=== PATIENT | female | born 1965 | race Caucasian/White ===

== ENCOUNTER 2021-10-17 18:43 | Emergency (ER) | payer OTHER, SELFPAY ==
--- NOTE | ~2021-10-17 | XR_ITS ---
EXAMINATION: XR chest 2V, XR sternum min 2V Exam Date/Time: 10/17/2021 19:10 CDT CLINICAL HISTORY: COUGH,CRACKLES,STERNUM PAIN SO NOT DEEP BREATHING Comparison: None available. RESULT: Lines, tubes, and devices: None. Lungs and pleura: No pneumothorax or focal consolidation. Bilobed appearing right lower lobe mass me asuring up to 3 cm. Hyperinflation as can be seen with emphysema. Cardiomediastinal silhouette: Unremarkable cardiomediastinal silhouette. Other: Right posterior lateral sixth rib fracture. Minimally displaced midsternal fracture. IMPRESSION: Right posterior lateral sixth rib fracture. Minimally displaced mid sternal fracture. Right lower lob e pulmonary mass, may represent a hamartoma or AVN, however a nonemergent outpatient CT of the chest with contrast is recommended for more definitive characterization. Reviewed, dictated and finalized at [facility]. IMPRESSION: Right posterior lateral sixth rib fracture. Minimally displaced mid sternal fra cture. Right lower lobe pulmonary mass, may represent a hamartoma or AVN, howev er a nonemergent outpatient CT of the chest with contrast is recommended for mo re definitive characterization.
--- NOTE | 2021-10-17 18:46 | ED.FALL ---
HPI - Fall General Chief Complaint: Fall Stated Complaint: Fall Injury Time Seen by Provider: 10/17/21 18:46 Source: patient and RN notes reviewed History of Present Illness HPI Narrative: Patient is a 56-year-old female who presents the urgent care with complaints of chest wall pain. Patient states that she bent in a funky area of her chest and ever since then she has been having extreme pain. Patient states that hurts to deep breathe or with certain movements. Patient has not taken anything [id number] for her symptoms. Denies of any blunt force trauma to the chest. States that this incident occurred on Friday. Denies any chest pain, radiating to the back, jaw or arm. No other acute complaints. No acute distress noted. Patient aware of the plan of care. Some parts of this dictation were generated by voice recognition software and may contain typographical and/or grammatical inaccuracies. Related Data Home Medications Medication Instructions Recorded Confirmed albuterol sulfate 1 puff INHALATION DAILY 10/17/21 10/17/21 gabapentin 600 mg PO QID 10/17/21 10/17/21 Allergies Allergy/AdvReac Type Severity Reaction Status Date / Time No Known Allergies Allergy Verified 10/17/21 19:00 Review of Systems Review of Systems: CONSTITUTIONAL: Denies fever, chills, or sweats. EYES: Denies visual changes, redness, or discharge. ENT: Denies rhinorrhea, congestion, sore throat, or otalgia. CARDIOVASCULAR: Denies chest pain, palpitations, or edema. RESPIRATORY: Denies cough or dyspnea. GASTROINTESTINAL: Denies abdominal pain, nausea, vomiting, or diarrhea. GENITOURINARY: Denies dysuria or hematuria. SKIN: Denies rash or itching. MUSCULOSKELETAL: Denies back pain, joint pain, or myalgia. Reports of chest wall pain NEUROLOGIC: Denies headache, numbness, or weakness. All other systems reviewed are negative, except as documented in HPI. PMFSH Family History Family History (Updated 06/10/11 @ 20:29 by DOCTOR UNKNOWN) Other Diabetes mellitus Family history of liver disease Social History Social History Alcohol intake: never Comments At the time of my signature, I reviewed and agree with the nursing past medical, surgical, social, and family history. There is no relevant family history pertinent to the patient complaint. Exam Narrative: GENERAL: This is a well-nourished, well-developed patient, in no apparent distress. HEAD: normocephalic, atraumatic. EYES: PERRL. Sclera clear/white. Vision is grossly intact. EARS: External ears normal NOSE: External nose normal with no obvious nasal discharge, nares without redness, no rhinorrhea. THROAT: Mucous membranes moist NECK: Neck supple, non-tender without lymphadenopathy, masses or thyromegaly. CARDIOVASCULAR: Moderate chest wall, sternum tenderness. Regular rate and rhythm without murmurs, gallops, or rubs. RESPIRATORY: Crackles throughout without wheezes SKIN: warm, intact with no suspicious lesions or rash, good texture and turgor. NEURO: awake, alert, and oriented to person, place and time. There were no obvious focal neurologic abnormalities. EXTREMITIES: No clubbing, cyanosis, or edema. Course Course Level of Care: Express Care Visit Vital Signs Vital signs: Vital Signs Temperature 99 F 10/17/21 18:49 Pulse Rate 102 H 10/17/21 18:49 Respiratory Rate 20 10/17/21 18:49 Blood Pressure 144/89 H 10/17/21 18:49 Pulse Oximetry 95 10/17/21 18:49 Temperature 99 F 10/17/21 18:49 Pulse Rate 102 H 10/17/21 18:49 Respiratory Rate 20 10/17/21 18:49 Blood Pressure 144/89 H 10/17/21 18:49 Pulse Oximetry 95 10/17/21 18:49 Reviewed-patient is informed that they may have pre-hypertension or hypertension based on a blood pressure reading in the department. I recommend the patient call the primary care provider listed on their discharge instructions or a physician of their choice this week to arrange follow-up for further evaluation of
[2021-10-17 18:49] VITALS: BP 144/89; PULSE 102; RESP 20; TEMP 37.2; O2SAT 95
== END 2021-10-17 20:02 | disposition left against medical advice (07) ==
LOC: EXPBETH 18:48
PROVIDERS: Emergency Provider Nurse Practitioner Family; PCP Nurse Practitioner Family
DX: S22.20XA Unspecified fracture of sternum, initial encounter for closed fracture (principal); S22.31XA Fracture of one rib, right side, initial encounter for closed fracture; X58.XXXA Exposure to other specified factors, initial encounter; J43.9 Emphysema, unspecified
CPT/HCPCS: 71046; 71120; 99213; G0463

== ENCOUNTER 2022-05-23 12:56 | Emergency (ER) | payer OTHER, SELFPAY ==
[2022-05-23 13:50] VITALS: BP 127/70; PULSE 104; RESP 20; TEMP 36.8; O2SAT 98
--- NOTE | 2022-05-23 14:33 | ED.URI ---
HPI - URI/Sore Throat General Chief Complaint: Upper Respiratory Infection Stated Complaint: Headache Time Seen by Provider: 05/23/22 14:25 Source: patient, RN notes reviewed and old records reviewed Mode of arrival: ambulatory Limitations: no limitations History of Present Illness HPI Narrative: 56-year-old female who presents to [facility] with headache for the past 3 days which she rates as 9/10. She reports that she started 5 days ago with head congestion PND, cough, occasional shortness of breath and wheezing, nausea with body aches, fatigue yellow sputum hoarseness but no fevers. Pateint reports that she has been taking Tylenol for her symptoms. 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 Patient reports that she has had flu shot, had COVID 2020 MD elicited complaint: cough, rhinorrhea, nasal congestion and other (headache, body aches, nausea) Pertinent past history: COPD and other ( lobectomy partial, undergoing chemotherapy for small cancer lung) Onset (ago): day(s) (5) Pain scale (0-10): 9 Treatments prior to arrival: acetaminophen Related Data Home Medications Medication Instructions Recorded Confirmed albuterol sulfate 90 mcg/actuation 1 puff inhalation DAILY 10/17/21 10/17/21 aerosol inhaler gabapentin 600 mg tablet 600 mg PO QID 10/17/21 10/17/21 Allergies Allergy/AdvReac Type Severity Reaction Status Date / Time No Known Allergies Allergy Verified 05/23/22 13:57 Review of Systems Review of Systems: CONSTITUTIONAL:Reports malaise, chills, sweats, or fever. EYES: Denies visual changes, redness, or discharge. ENT: Reports rhinorrhea, congestion, sinus pain, no otalgia or sore throat. CARDIOVASCULAR: Denies chest pain, palpitations, or edema. RESPIRATORY: Reports cough.?reports some dyspnea with occasional wheezing GASTROINTESTINAL: Denies abdominal pain, positive for nausea, vomiting,no diarrhea SKIN: Denies rash or itching. MUSCULOSKELETAL: Positive for myalgia. NEUROLOGIC:Reports headache. All systems reviewed & are unremarkable except as noted in HPI and below PMFSH Past Medical History Medical History (Updated 06/04/22 @ 09:27 by Radha Blas NP) Emphysema lung Neuropathy Small cell lung cancer Surgical History Surgical History (Updated 06/04/22 @ 09:26 by Radha Blas NP) H/O knee surgery H/O Spinal surgery H/O: hysterectomy S/P partial lobectomy of lung Family History Family History (Updated 06/10/11 @ 20:29 by DOCTOR UNKNOWN) Other Diabetes mellitus Family history of liver disease Social History Social History (Updated 06/04/22 @ 09:24 by Radha Blas NP) Smoking packs per day: 0.5 Smoking cigarettes per day: 10.0 Years smoked: 43 Smoking pack-years: 21.50 Smoking status: Former smoker Additional smoking assessment comments: recently quit smoking Alcohol intake: never Substance use type: does not use Gender identity (if verbalized by the patient): Female Comments At time of signature, agree with nursing past medical, surgical, social and family history. There is no relevant family history pertinent to the presenting complaint Exam Narrative: GENERAL: Well-appearing, well-nourished, and in no acute distress. HEAD: Normocephalic EYES: PERRLA, conjunctivae clear ENT: Nares clear, turbinates edematous and erythematous, yellow discharge. Mucous membranes moist. TM pearly edouard with dull light reflex bilaterally; no tragal tenderness. Oropharynx erythematous without lesions. Tonsils not enlarged and without exudate, no drooling, positive for hoarseness, no trismus, uvula midline, post nasal drainage NECK: Supple. No lymphadenopathy CHEST: Clear decreased breath sounds on auscultation, breath sounds equal. No wheezing, rhonchi, rales, or stridor. No respiratory distress, speaks in full sentence
== END 2022-05-23 14:55 | disposition home or self-care (01) ==
PROVIDERS: Emergency Provider Registered Nurse; PCP Nurse Practitioner Family
DX: U07.1 COVID-19 (principal); J44.9 Chronic obstructive pulmonary disease, unspecified; Z85.118 Personal history of other malignant neoplasm of bronchus and lung; Z90.2 Acquired absence of lung [part of]; Z87.891 Personal history of nicotine dependence; Z79.899 Other long term (current) drug therapy
CPT/HCPCS: 87426; 87804; 99213; C9803; G0463

== ENCOUNTER 2024-01-22 15:51 | Emergency (ER) | payer OTHER, SELFPAY ==
[2024-01-22 16:09] VITALS: BP 125/83; PULSE 94; RESP 15; TEMP 36.5; O2SAT 100
--- NOTE | 2024-01-22 16:54 | ED.GENADULT ---
HPI - General Adult General Chief complaint: Skin/Abscess/Foreign Body Stated complaint: Right Foot Swelling Time Seen by Provider: 01/22/24 16:56 Source: patient, RN notes reviewed and old records reviewed Mode of arrival: ambulatory Limitations: no limitations History of Present Illness HPI narrative: 58-year-old female to [facility] Care for complaint redness, warmth, swelling, tenderness to right lateral ankle for 4 days. Patient states that she believes she was bit by a spider. Patient reports initial itching and irritation with initial bite. Patient reports increasing symptoms over the past 4 days. Patient sitting uncomfortably in exam room and endorsing dizziness and nausea. Patient states that just prior to provider walking into room patient felt as though she was going to pass out. Patient states, I just do not feel right . patient denies weakness, numbness, tingling, fever, vomiting, diarrhea, drainage from wound, headache. Patient able to tolerate fluids by mouth. respirations even and nonlabored. Patient able to speak in complete sentences without difficulty. Patient alert and oriented x3. Patient in no acute distress. Related Data Home Medications Medication Instructions Recorded Confirmed gabapentin 800 mg tablet 800 mg PO QID 01/22/24 01/22/24 Allergies Allergy/AdvReac Type Severity Reaction Status Date / Time tramadol Allergy Seizure Verified 01/22/24 16:11 Review of Systems Review of Systems: All systems reviewed & are unremarkable except as noted in HPI and below Constitutional: Constitutional: Reports no additional constitutional complaints Eyes: Eyes: Reports no additional eye complaints ENT: Reports system reviewed and no additional complaints, except as documented Cardiovascular: Cardiovascular: Reports no additional cardiovascular complaints, Denies chest pain and Denies dyspnea Respiratory: Respiratory: Reports no additional respiratory complaints, Denies cough and Denies dyspnea Gastrointestinal: Gastrointestinal: Reports as per HPI and Reports nausea Musculoskeletal: Musculoskeletal: Reports no additional musculoskeletal complaints Integumentary/Breasts: Skin/Breast: Reports new lesions ( Right lateral ankle) Neurologic: Reports as per HPI, Reports dizziness, Denies numbness, Denies tingling and Denies weakness Psychiatric: Psychiatric: Reports no additional psychiatric complaints [facility] Past Medical History Medical History Emphysema lung Neuropathy Small cell lung cancer Surgical History Surgical History H/O knee surgery H/O Spinal surgery H/O: hysterectomy S/P partial lobectomy of lung Family History Family History Other Diabetes mellitus Family history of liver disease Social History Social History Smoking packs per day: 0.5 Smoking cigarettes per day: 10.0 Years smoked: 43 Smoking pack-years: 21.50 Smoking status: Former smoker Additional smoking assessment comments: recently quit smoking Alcohol intake: never Substance use type: does not use Gender identity (if verbalized by the patient): Female Comments At the time of my signature, I reviewed and agree with the nursing past medical, surgical, social, and family history. There is no relevant family history pertinent to the patient complaint. Exam Const: General: cooperative, no acute distress, well developed, alert, awake, Physically active, uncomfortable, well groomed and well nourished Nutritional Appearance: well nourished Orientation/consciousness: patient oriented x3 Limitations: no limitations HENMT: Head: normal to inspection Ears: external ears normal Face/Nose/Sinus: Normal external nose present, Normal nares present, normal facia
== END 2024-01-22 17:08 | disposition short-term general hospital (02) ==
PROVIDERS: Emergency Provider Nurse Practitioner Family; PCP Nurse Practitioner Family
DX: S80.861A Insect bite (nonvenomous), right lower leg, initial encounter (principal); L03.115 Cellulitis of right lower limb; Z87.891 Personal history of nicotine dependence; J43.9 Emphysema, unspecified; G62.9 Polyneuropathy, unspecified; Z85.118 Personal history of other malignant neoplasm of bronchus and lung; Z90.2 Acquired absence of lung [part of]
CPT/HCPCS: 99212; G0463

== ENCOUNTER 2024-09-18 17:44 | Emergency (ER) | payer OTHER, SELFPAY ==
[2024-09-18 17:45] VITALS: BP 148/78; PULSE 93; RESP 24; TEMP 36.9; O2SAT 94
--- OUTSIDE RECORDS SUMMARY | 2024-09-18 17:47 | XMS_ITS | Data Portability ---
Author Organization [facility] Address [address] [place] [address] Care Team Providers Care Steam Pipe Fitter Name Role Phone COURTNEY STRATTON Primary Care Provider Unavailabl e Assessment No assessment recorded. Plan of Treatment Reminders Order Date Submit Date Provider Last Modified By Organization Details Last Modified Time Details Appointments ANY 15 2024 07:30A M Courtney Stratton, STRUCTURAL IRONWORKER, FILM NUMBERER-C Not available Not available Not available Lab rapid flu (A+B) 2023 024 In-Office Order, Internal Use Only DO Not Attach Compendium DO Not Attach Compendium, Do Not Delete/merge, [id number] 05/25/2024 16:36:23 rapid SARS CoV 2 Ag, QL IA, respira tory specime n 2023 024 In-Office Order, Internal Use Only DO Not Attach Compendium DO Not Attach Compendium, Do Not Delete/merge, [id number] 05/25/2024 16:36:31 TSH, ultra-s ensitiv e, serum 2023 024 KESHAV [facility], [address], [place], [address], 04/06/2024 09:13:51 CMP, serum or plasma 2023 024 KESHAV [facility], [address], [place], [address], 04/06/2024 03:08:57 lipid panel, serum 2023 024 [facility], [address], [place], [address], 04/06/2024 03:08:56 CBC 2023 024 [facility], [address], [place], [address], 04/06/2024 03:08:59 Referral podiatr ist referra l 2022 023 [facility], [address], [address], [place], [address], 01/13/2023 16:23:48 Procedures None recorde d. Surgeries None recorde d. Imaging XR, hand, 3 or more view 2022 023 [facility] (Radiology), [address] [place], [address], 04/25/2023 18:14:12 MAMMO, screeni ng, digital , bilater al 2022 023 [facility] ([facility]) Scheduling, [address] [place], [address], 07/28/2023 08:13:19 Medication Orders flutica sone propion ate 50 mcg/act uation nasal spray,s uspensi on 2023 [facility][id number], [address], [place], [place], [id number], 05/25/2024 16:36:19 ciclopi gasper 8 % topical solutio n 2023 024 [facility] #[id number], [address], [place], [place], [id number], 04/05/2024 08:56:50 gabapen tin 800 mg tablet 2023 024 KESHAV [facility] #[id number], [address], [place], [place], [id number], 04/05/2024 08:56:50 gabapen tin 800 mg tablet 2023 024 [facility] #[id number], [address], [place], [place], [id number], 10/02/2023 11:53:40 Patient TargetsNo targets recorded. Patient Instructions Encounter Date Encounter Id Patient Instructions Last Modified By Organization Details Last Modified Time 11/28/2022 [id number] osteoporosis: care instructions Not available 11/28/2022 16:19:47 learning about high blood pressure Not available 11/28/2022 16:19:47 learning about breast cancer screening Not available 11/28/2022 16:21:48 neuropathic pain : care instructions Not available 11/28/2022 16:19:47 learning about mood disorders Not available 11/28/2022 16:19:47 Continue to work on diet. Increase activity level to get exercise most days of the week. Work on eating more fresh fruit, veggies and lean protein and less packaged foods. Take all medications as prescribed. Keep appointments with PCP and all specialists. Cut back on the fatty foods, add fish oil or omega three fatty acids; Drink more water! Low salt diet. Not available 11/28/2022 16:14:12 f/u 3 months DWP barriers to care: none Not available 11/28/2022 16:14:13 03/31/2023 [id number] influenza (flu) vaccine: care instructions Not available 03/31/2023 12:37:17 osteoporosis: care instructions Not available 03/31/2023 12:37:17 neuropathic pain : care instructions Not available 03/31/2023 12:37:17 learning about mood disorders Not available 03/31/2023 12:37:17 Continue to work on diet. Increase activity level to get exercise most days of the week. Work on eating more fresh fruit, veggies and lean protein and less packaged foods. Take all medications as prescribed. Keep appointments with PCP and all specialists. Cut back on the fatty foods, add fish oil or omega three fatty acids; Drink more water! Low salt diet. Not available 03/31/2023 12:33:47 f/u 6 months DWP barriers to care: none Not available 03/31/2023 12:37:38 10/02/2023 [id number] osteoporosis: care instructions Not available 10/02/2023 11:27:21 hand arthritis: exercises Not available 10/02/2023 11:54:21 neuropathic pain : care instructions Not available 10/02/2023 11:27:21 learning about mood disorders Not available 10/02/2023 11:27:21 Continue to work on diet. Increase activity level to get exercise most days of the week. Work on eating more fresh fruit, veggies and lean protein and less packaged foods. Take all medications as prescribed. Keep appointments with PCP and all specialists. Cut back on the fatty foods, add fish oil or omega three fatty acids; Drink more water! Low salt diet. Not available 10/02/2023 11:10:45 f/u 6 months DWP barriers to care: none Not available 10/02/2023 11:10:44 04/05/2024 [id number] influenza (flu) vaccine: care instructions Not available 04/05/2024 08:58:34 osteoporosis: care instructions Not available 04/05/2024 08:56:45 toenail fungus: care instructions Not available 04/05/2024 08:56:46 hand arthritis: exercises Not available 04/05/2024 08:56:46 learning about mood disorders Not available 04/05/2024 08:56:46 neuropathic pain : care instructions Not available 04/05/2024 08:56:45 Continue to work on diet. Increase activity level to get exercise most days of the week. Work on eating more fresh fruit, veggies and lean protein and less packaged foods. Take all medications as prescribed. Keep appointments with PCP and all specialists. Cut back on the fatty foods, add fish oil or omega three fatty acids; Drink more water! Low salt diet. [facility] Not available 04/05/2024 08:52:35 f/u 6 months DWP barriers to care: none [facility] Not available 04/05/2024 08:56:39 05/25/2024 [id number] eustachian tube problems: care instructions [facility] Not available 05/25/2024 16:36:14 most viral illnesses will clear in 7-10 days, if still symptomatic, then please call office [email or web address] Not available 05/25/2024 16:39:30 follow up as needed [facility] Not available 05/25/2024 16:39:36 Reason for Referral Cartography/Mapping Technician Referral for Neur opathy Referring Physician: Courtney Stratton, Family Medicine, Encounter Date: 11/28/2022 Results Created Date Observation Date Name Description Value Unit Range Abnormal Flag Note LastModifiedBy Organization Detail LastModifiedTime 04/05/2004/05/2024 LIPID PANEL cholesterol, total 171 mg/dL 100-19 9 Not Available [facility] [address] [place], [address], 04/06/2024 03:08:56 04/05/2004/05/2024 LIPID PANEL triglyceride s 58 mg/dL 0-149 Not Available [facility] [address] [place], [address], 04/06/2024 03:08:56 04/05/2004/05/2024 LIPID PANEL HDL cholesterol 64 mg/dL 40-999 Not Available [facility] [address] [place], [address], 04/06/2024 03:08:56 04/05/2004/05/2024 LIPID PANEL VLDL cholesterol oscar 12 mg/dL 5-40 Not Available [facility] [address] [place], [address], 04/06/2024 03:08:56 04/05/2004/05/2024 LIPID PANEL LDL chol calc ([facility]) 104 mg/dL 0-99 above high normal Not Available [facility] [address] [place], [address], 04/06/2024 03:08:56 04/05/20 24 04/05/2024 COMP. METAB OLIC PANEL (14) glucose 82 mg/dL 70-99 Not Available [facility] [address] [place], [address], 04/06/2024 03:08:57 04/05/2004/05/2024 COMP. METAB OLIC PANEL (14) BUN 21 mg/dL 8-27 Not Available [facility] [address] [place] [address], [address], 04/06/2024 03:08:57 04/05/2004/05/2024 COMP. METAB OLIC PANEL (14) creatinine 0.85 mg/dL 0.76-1 .27 Not Available [facility] [address] [place], [address], 04/06/2024 03:08:57 04/05/2004/05/2024 COMP. METAB OLIC PANEL (14) eGFR 78 >=60 Units for eGFR value s are mL/mi n/1.7 3 The eGFR Calcu latio n has not been valid ated for patie nts under the age of 18. If test resul ts are displ ayed for a patie nt under the age of 18, disre ismael that value . Not Available [facility] [address] [place], [address], 04/06/2024 03:08:57 04/05/2004/05/2024 COMP. METAB OLIC PANEL (14) BUN/creatini ne ratio 25 04-05 Not Available [facility] [address] [place], [address], 04/06/2024 03:08:57 04/05/20 24 04/05/2024 COMP. METAB OLIC PANEL (14) sodium 141 mmol/ L 134-14 4 Not Available [facility] [address] [place] [address], [address], 04/06/2024 03:08:57 04/05/20 24 04/05/2024 COMP. METAB OLIC PANEL (14) potassium 4.4 mmol/ L 3.5-5. 2 Not Available [facility] [address] [place] [address], [address], 04/06/2024 03:08:57 04/05/2004/05/2024 COMP. METAB OLIC PANEL (14) chloride 102 mmol/ L 96-106 Not Available [facility] [address] [place] [address], [address], 04/06/2024 03:08:57 04/05/2004/05/2024 COMP. METAB OLIC PANEL (14) carbon dioxide, total 28 mmol/ L 20-29 Not Available [facility] [address] [place] [address], [address], 04/06/2024 03:08:57 04/05/20 24 04/05/2024 COMP. METAB OLIC PANEL (14) calcium 9.3 mg/dL 8.7-10 .3 Not Available [facility] [address] [place] [address], [address], 04/06/2024 03:08:57 04/05/2004/05/2024 COMP. METAB OLIC PANEL (14) protein, total 7.4 g/dL 6.0-8. 5 Not Available [facility] [address] [place] [address], [address], 04/06/2024 03:08:57 04/05/20 24 04/05/2024 COMP. METAB OLIC PANEL (14) albumin 4.3 g/dL 3.8-4. 9 Not Available [facility] [address] [place] [address], [address], 04/06/2024 03:08:57 04/05/20 24 04/05/2024 COMP. METAB OLIC PANEL (14) globulin, total 3.1 g/dL 1.5-4. 5 Not Available [facility] [address] [place], [address], 04/06/2024 03:08:57 04/05/2004/05/2024 COMP. METAB OLIC PANEL (14) A/G ratio 1.4 1.2-2. 2 Not Available [facility] [address] [place], [address], 04/06/2024 03:08:57 04/05/2004/05/2024 COMP. METAB OLIC PANEL (14) bilirubin, total 0.2 mg/dL 0.0-1. 2 Not Available [facility] [address] [place], [address], 04/06/2024 03:08:57 04/05/2004/05/2024 COMP. METAB OLIC PANEL (14) alkaline phosphatase 109 IU/L 44-121 Not Available [facility] [address] [place], [address], 04/06/2024 03:08:57 04/05/20 24 04/05/2024 COMP. METAB OLIC PANEL (14) AST (SGOT) 18 IU/L 0-40 Not Available [facility] [address] [place], [address], 04/06/2024 03:08:57 04/05/2004/05/2024 COMP. METAB OLIC PANEL (14) ALT (SGPT) 15 IU/L 0-32 Not Available [facility] [address] [place], [address], 04/06/2024 03:08:57 04/05/2004/05/2024 CBC, PLATE LET, NO DIFFE RENTI AL WBC 6.7 x10e3 /uL 3.4-10 .8 Not Available [facility] [address] [place], [address], 04/06/2024 03:08:59 04/05/2004/05/2024 CBC, PLATE LET, NO DIFFE RENTI AL RBC 3.97 x10e6 /uL 3.77-5 .28 Not Available [facility] [address] [place], [address], 04/06/2024 03:08:59 04/05/2004/05/2024 CBC, PLATE LET, NO DIFFE RENTI AL hemoglobin 12.9 g/dL 11.1-1 5.9 Not Available [facility] [address] [place], [address], 04/06/2024 03:08:59 04/05/2004/05/2024 CBC, PLATE LET, NO DIFFE RENTI AL hematocrit 40.6 % 34.0-4 6.6 Not Available [facility] [address] [place], [address], 04/06/2024 03:08:59 04/05/2004/05/2024 CBC, PLATE LET, NO DIFFE RENTI AL MCV 102 fL 79-97 above high normal Not Available [facility] [address] [place], [address], 04/06/2024 03:08:59 04/05/2004/05/2024 CBC, PLATE LET, NO DIFFE RENTI AL MCH 32.5 pg 26.6-3 3.0 Not Available [facility] [address] [place], [address], 04/06/2024 03:08:59 04/05/2004/05/2024 CBC, PLATE LET, NO DIFFE RENTI AL MCHC 31.8 g/dL 31.5-3 5.7 Not Available [facility] [address] [place], [address], 04/06/2024 03:08:59 04/05/2004/05/2024 CBC, PLATE LET, NO DIFFE RENTI AL RDW 12.3 % 11.5-1 4.5 Not Available [facility] [address] [place], [address], 04/06/2024 03:08:59 04/05/2004/05/2024 CBC, PLATE LET, NO DIFFE RENTI AL platelets 269 x10e3 /uL 150-45 0 Mean Plate let Volum e 9.4 fL 8.9-1 2.7 N Not Available [facility] [address] [place], [address], 04/06/2024 03:08:59 04/05/2004/05/2024 CBC, PLATE LET, NO DIFFE RENTI AL NRBC 0 % 0-0 Not Available [facility] [address] [place], [address], 04/06/2024 03:08:59 04/05/2004/06/2024 TSH RFX ON ABNOR MAL TO FREE T4 TSH 1.300 uIU/m L 0.450- 4.500 Not Available [facility] ([facility]) [address] [facility], [place], [address], 04/06/2024 09:13:51 05/25/20 24 05/25/2024 rapid SARS CoV 2 Ag, QL IA, respi rator y speci men rapid SARS CoV 2 Ag, QL IA, respiratory specimen negati ve Not Available In-Office Order Internal Use Only DO Not Attach Compendium DO Not Attach Compendium, Do Not Delete/merge, [id number] 05/25/2024 16:34:57 05/25/20 24 05/25/2024 rapid flu (A+B) Flu A negati ve Not Available In-Office Order Internal Use Only DO Not Attach Compendium DO Not Attach Compendium, Do Not Delete/merge, [id number] 05/25/2024 16:34:56 05/25/20 24 05/25/2024 rapid flu (A+B) Flu B negati ve Not Available In-Office Order Internal Use Only DO Not Attach Compendium DO Not Attach Compendium, Do Not Delete/merge, [id number] 05/25/2024 16:34:56 04/25/20 23 04/25/2023 XR, hand, 3 or more view No observ ation record ed. [facility] [address] [place], [address], 05/06/2023 08:26:15 06/11/19 24 05/16/2022 MAMMO , scree deborah, tomos ynthe sis, bilat eral No observ ation record ed. Not Available 08/2023 16:41:31 11/24/19 24 11/24/2023 MAMMO , diagn ostic , digit al, bilat eral No observ ation record ed. [facility] [address] [place], [address], 11/28/2023 10:26:44 11/24/19 24 11/24/2023 MAMMO , diagn ostic , digit al, bilat eral No observ ation record ed. [facility]) Scheduling [address] [place], [address], 11/28/2023 10:26:40 Result Notes None recorded. Problems Name Problem SNOMED Code Status Onset Date Resolution Date Notes Provider Name and Address Organization Details Recorded Time Neuropathy 848394906 Active 2017 Not Available [facility] 13:11:59 Fibromyalg ia 254372535 Active 2017 Not Available [facility] 13:11:59 Osteoporos is 50104997 Active 2017 Not Available [facility] 13:11:59 Arthritis 6132770 Active 2017 Not Available [facility] 11/18/202 1 13:11:59 Mixed anxiety and depressive disorder 936582045 Active 2017 Not Available [facility] 1 13:11:59 History of drug abuse 918022640 Active 2017 Not Available [facility] 1 13:11:59 Abnormal renal function 39111035 Active 2017 Not Available [facility] 1 13:11:59 Pain of bilateral hands 5104128401231 9109 Active 2020 Not Available [facility] 1 13:11:59 Anti-nucle ar factor detected 981783588 Active 2021 Courtney Stratton APN, FILM NUMBERER-C Attn: Accounting ,[address] [place], [address] , [facility] 2 15:02:42 Dyspnea 201415703 Active 2021 Courtney Stratton APN, FILM NUMBERER-C Attn: Accounting ,[address] [place], [address] , [facility] 2 15:02:43 Arthritis of hand 873035760 Active 2023 Courtney Stratton APN, FILM NUMBERER-C Attn: Accounting ,[address] [place], [address] , [facility] 4 11:54:34 Problem Notes None recorded. Procedures Surgical History Date Name Laterality Status Provider Name and Address Organization Details Recorded Time 06/09/19 11 [facility]2017 14:12:16 06/09/19 08 Back Surgery completed Jennifer Evans [facility] - [facility] 06/10/2017 14:11:47 06/09/19 00 Total hysterectomy completed Jennifer Evans MS - [facility] 06/10/2017 14:10:45 06/09/19 00 Total hysterectomy completed Courtney Stratton APN, FILM NUMBERER-C Attn: Accounting,[address] [place], [address], [facility] 06/16/2018 09:46:51 01/01/19 98 Tubal Ligation completed Jennifer Evans [facility] - [facility] 06/10/2017 14:10:54 Imaging Results Imaging Date Name Status LastModified by Organiz ation Details LastModified Time 04/25/2023 XR, hand, 3 or more view completed [facility] [address] [place], [address], 05/06/2023 08:26:15 05/16/2022 MAMMO, screening, tomosynthesis, bilateral completed [email or web address] Information not available 06/11/2023 16:41:31 11/24/2023 MAMMO, diagnostic, digital, bilateral completed jschulterma [facility] [address] [place], [address], 11/28/2023 10:26:44 11/24/2023 MAMMO, diagnostic, digital, bilateral completed [facility] ([facility]) Scheduling [address] [place], [address], 11/28/2023 10:26:40 Procedure Notes None recorded. Medical Equipment None Reported. Allergies Allergen ID Allergen Name Allergen Category Reaction Reaction Severity Criticality Documentation Date Start Date Code Code System Note Provider Name and Address Organization Details Recorded Time 830558 tramadol medicatio n seizure Not available Not available 06/10/2017 32129 RxNorm Not Available Not Available Not Available Medications Name Sig Start Date Stop Date Status Note LastModified by Organization Details LastModified Time cyclobenz aprine 10 mg tablet 11/03 completed Not Available Not Available Not Available methocarb lukas 500 mg tablet 11/28 completed Not Available Not Available Not Available buspirone 5 mg tablet TAKE 1 TABLET BY MOUTH TWICE DAILY 11/28 completed Not Available Not Available Not Available gabapenti n 600 mg tablet TAKE 1 TABLET BY MOUTH FOUR TIMES DAILY 10/01 completed Not Available Not Available Not Available albuterol sulfate 2.5 mg/3 mL (0.083 %) solution for nebulizat ion Inhale 3 mL every 4 hours by nebuliza tion route as needed. 2019 active Not Available Not Available Not Avai lable polyethyl terrance glycol 3350 17 gram oral powder packet DISSOLVE CONTENTS OF 1 PACKET IN LIQUID AND DRINK BY MOUTH DAILY 11/28 completed Not Available Not Available Not Available cetirizin e 10 mg tablet TAKE 1 TABLET BY MOUTH EVERY DAY. 09/06 completed Not Available Not Available Not Available azithromy mattie 250 mg tablet TAKE 2 TABLETS BY MOUTH FOR 1 DAY THEN TAKE 1 TABLET BY MOUTH DAILY FOR 4 DAYS 03/11 completed Not Available Not Available Not Available hydrocodo ne 5 mg-acetam inophen 325 mg tablet TAKE 1 TABLET BY MOUTH EVERY 4 TO 6 HOURS NEEDED FOR PAIN. MAX OF 8 TABLETS IN 24 HOURS 03/11 completed Not Available Not Available Not Available ondansetr on HCl 8 mg tablet 11/28 completed Not Available Not Available Not Available ondansetr on HCl 4 mg tablet TAKE 1 TABLET BY MOUTH EVERY 8 HOURS NEEDED FOR NAUSEA 04/05 completed Not Available Not Available Not Available prednison e 20 mg tablet TAKE 2 TABLETS BY MOUTH DAILY FOR 5 DAYS 03/11 completed Not Available Not Available Not Available olanzapin e 5 mg tablet 11/28 completed Not Available Not Available Not Available prochlorp erazine maleate 10 mg tablet TAKE 1 TABLET BY MOUTH EVERY 6 HOURS NEEDED FOR NAUSEA 11/28 completed Not Available Not Available Not Available sulfameth oxazole 800 mg-trimet hoprim 160 mg tablet TAKE 1 TABLET BY MOUTH TWICE DAILY FOR 10 DAYS FOR SKIN INFECTIO N 04/05 completed Not Available Not Available Not Available oxycodone 15 mg tablet 11/28 completed Not Available Not Available Not Available ciclopiro x 8 % topical solution APPLY TO THE AFFECTED AREA(S) ONCE DAILY PREFERAB LY AT BEDTIME OR 8 HOURS BEFORE WASHING active Not Available Not Available No t Available DOK 100 mg capsule 08/23 completed Not Available Not Available Not Available gabapenti n 800 mg tablet TAKE 1 TABLET BY MOUTH FOUR TIMES DAILY active Not Available Not Available No t Available cephalexi n 500 mg capsule TAKE 1 CAPSULE BY MOUTH FOUR TIMES DAILY FOR 10 DAYS FOR SKIN INFECTIO N 04/05 completed Not Available Not Available Not Available dexametha sone 4 mg tablet TAKE 1 TABLET BY MOUTH TWICE DAILY FOR THREE DAYS FOLLOWIN G EACH CHEMOTHE RAPY 11/28 completed Not Available Not Available Not Available prednison e 50 mg tablet TAKE 1 TABLET BY MOUTH DAILY FOR 5 DAYS 03/11 completed Not Available Not Available Not Available gabapenti n 300 mg capsule Take 2 capsules 4 times a day by oral route for 30 days. 06/16 completed Not Available Not Available Not Available codeine 10 mg-guaife nesin 100 mg/5 mL oral liquid 10 ML ORALLY EVERY 4 - 6 HOURS NEEDED FOR COUGH 11/28 completed Not Available Not Available Not Available mupirocin 2 % topical ointment APPLY A SMALL AMOUNT TO THE AFFECTED AREA BY TOPICAL ROUTE 3 TIMES PER DAY 08/23 completed Not Available Not Available Not Available mirtazapi ne 15 mg tablet 04/05 completed Not Available Not Available Not Available ibuprofen 600 mg tablet TAKE 1 EVERY 6 HOURS NEEDED PAIN 03/11 completed Not Available Not Available Not Available polyethyl terrance glycol 3350 17 gram/dose oral powder 08/23 completed Not Available Not Available Not Available methylpre dnisolone 4 mg tablets in a dose pack TAKE DIRECTED 12/17 completed Not Available Not Available Not Available albuterol sulfate HFA 90 mcg/actua tion aerosol inhaler INHALE 2 PUFFS BY MOUTH EVERY 6 HOURS NEEDED FOR WHEEZING active Not Available Not Available No t Available ondansetr on 4 mg disintegr ating tablet DISSOLVE 1 TABLET ON THE TONGUE EVERY 6 HOURS NEEDED FOR NAUSEA OR VOMITING 11/28 completed Not Available Not Available Not Available fluticaso ne propionat e 50 mcg/actua tion nasal spray,fauzia pension [place] 1 spray twice a day by intranas al route as needed. active Not Available Not Available No t Available duloxetin e 30 mg capsule,d elayed release TAKE 1 CAPSULE BY MOUTH EVERY DAY active Not Available Not Available No t Available duloxetin e 60 mg capsule,d elayed release TAKE 1 CAPSULE BY MOUTH EVERY DAY 08/23 completed pt states she wants to be prescrib ed somethin g else Not Available Not Available Not Available Dulera 200 mcg-5 mcg/actua tion HFA aerosol inhaler INHALE 1 PUFF BY MOUTH TWICE DAILY 11/28 completed Not Available Not Available Not Available Paxlovid 150 mg-100 mg tablets in a dose pack (Renal Dose) TAKE 1 PINK NIRMATRE LVIR TABLET AND 1 WHITE RITONAVI R TABLET BY MOUTH TOGETHER AT THE SAME TIME TWICE DAILY FOR 5 DAYS 11/28 completed Not Available Not Available Not Available Vitals Date Recorded Body height Body mass index (BMI) Body weight Oxygen saturation Oxygen saturation in Arterial blood by Pulse oximetry Heart rate Respiratory rate Body temperature Systolic blood pressure Diastolic blood pressure Provider Name and Address Organization Details Last Updated DateTime 3 170.18 cm 20.4 kg/m2 46227.0 1 g 98 % 98 % 98 /min 16 /min 98 [degF] 140 mm[Hg] 86 mm[Hg] Saundra Lynn [facility] 3 16:08:44 Date Recorded Systolic blood pressure Diastolic blood pressure Provider Name and Address Organization Details Last Updated DateTime 11/28/2022 138 mm[Hg] 88 mm[Hg] Courtney Stratton APN, FILM NUMBERER-C Attn: Accounting,[address] [place], [address], [facility] 11/28/2022 16:22:42 Date Recorded Body height Body mass index (BMI) Body weight Oxygen saturation Oxygen saturation in Arterial blood by Pulse oximetry Heart rate Respiratory rate Body temperature Systolic blood pressure Diastolic blood pressure Provider Name and Address Organization Details Last Updated DateTime 3 170.18 cm 21 kg/m2 18837.3 8 g 98 % 98 % 98 /min 16 /min 98.4 [degF] 104 mm[Hg] 64 mm[Hg] Saundra Lynn [facility] 3 12:24:12 Date Recorded Body height Body mass index (BMI) Body weight Oxygen saturation Oxygen saturation in Arterial blood by Pulse oximetry Heart rate Respiratory rate Body temperature Systolic blood pressure Diastolic blood pressure Provider Name and Address Organization Details Last Updated DateTime 4 170.18 cm 21.2 kg/m2 11088.3 3 g 95 % 95 % 102 /min 16 /min 98.1 [degF] 126 mm[Hg] 81 mm[Hg] Lashawn Zamudio MA [facility] 4 11:08:29 Date Recorded Body height Body mass index (BMI) Body weight Oxygen saturation Oxygen saturation in Arterial blood by Pulse oximetry Respiratory rate Body temperature Systolic blood pressure Diastolic blood pressure Provider Name and Address Organization Details Last Updated DateTime 4 170.18 cm 20.4 kg/m2 61423.0 1 g 95 % 95 % 16 /min 97.5 [degF] 114 mm[Hg] 74 mm[Hg] KEISHA Alfaro [facility] 4 08:42:10 Date Recorded Body height Body mass index (BMI) Body weight Oxygen saturation Oxygen saturation in Arterial blood by Pulse oximetry Respiratory rate Body temperature Heart rate Systolic blood pressure Diastolic blood pressure Provider Name and Address Organization Details Last Updated DateTime 4 170.18 cm 20.8 kg/m2 91654.7 9 g 97 % 97 % 16 /min 98.4 [degF] 114 /min 102 mm[Hg] 70 mm[Hg] KEISHA Alfaro [facility] 4 16:16:42 Social History Question Answer Notes LastModified by Organizat ion Details LastModified Time Tobacco Smoking Status Former Smoker Saundra Lynn [facility] 09/06/2021 14:52:13 Do You Have An Advance Directive? No Information not available 03/01/2019 What Is Your Level Of Alcohol Consumption? None [email or web address] Information not available 10/02/2023 Are You Blind Or Do You Have Difficulty Seeing? No [email or web address] Information not available 09/06/2021 Is Blood Transfusion Acceptable In An Emergency? Yes Information not available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 Antonio Update Ultra Sound Date Fundal Height At Umbil Quickening Date Ultra Sound Latest Weeks Gestation Final Luis Antonio Confirmed By Final Luis Antonio Confirmed Date Final Luis Antonio Date Ultra Sound Latest Days Gestation 0 0 Menstrual History Last Menstrual Date Menses Monthly On Bcp Conception Prior Menses Frequency Hcg Plus Date Menarche Onset Age Delivery Information Delivery Date Delivery Type Labor Anesthesia Weeks Gestation Incision Type Labor Labor Length Hrs Delivered By Post Complications Tubal Sterilization Discharge Date Comments 3 Discharge Information Feeding Method Contraceptive Method Maternal HG B and HCT Levels
--- OUTSIDE RECORDS SUMMARY | 2024-09-18 17:47 | XMS_ITS | Clinical Summary ---
Author Organization [facility] Address [address] [place] [address] Phone Care Team Providers Care Atmospheric Chemist Name Role Phone Edelmira, Courtney CISNEROS, [facility] Primary Care Provider [phone] Christo Casillas MD Unavailable Lee Medrano MD Unavailable Hi Huston MD Unavailable Jason Pihpps MD Unavailable Janae Diaz APRN, [facility] Unavailable Emerson Chase MD Unavailable Allergies Active Allergy Reactions Criticality Noted Date Comments Tramadol Other (see Comments) 11/25/2018 seizures Medications gabapentin (NEURONTIN) 600 MG Tablet Take 600 mg by mouth 4 times daily. Active ibuprofen (MOTRIN) 200 MG Tablet Take 1 Tablet by mouth every 6 hours as needed for Mild or more severe pain. 30 Tablet 05/06/2022 Active Active Problems Problem Noted Date Diagnosed Date Current smoker 01/10/2023 Weight loss 10/01/2022 History of cancer chemotherapy 07/24/2022 Overview (07/24/2022): 4 cycles of adjuvant postoperative cisplatin plus etoposide given in the dose of cisplatin 25 milligrams/meter sq day plus etoposide 100 milligrams/meter sq day 1, 2, 3 every 21 day cycle for 4 cycles. Cycle 1 started 04/22/2022 and cycle 4 completed on 06/27/2022. Recurrent depressive disorder, current episode m oderate 07/19/2022 Other emphysema 07/09/2022 Anxiety 07/09/2022 Chronic right shoulder pain 07/09/2022 Fibrocystic disease of right breast 04/17/2022 Macrocytic anemia 02/19/2022 Neuropathy of both feet 02/19/2022 Pain in both lower extremities 02/19/2022 Dizziness 02/19/2022 Personal history of tobacco use 01/03/2022 Nodule of left lung 01/03/2022 SOB (shortness of breath) 01/03/2022 Small cell lung cancer, right lower lobe Cancer Staging:Clinical stage from 02/13/2022:Stage IB(cT2a, cN0, cM0) - Signed by Hi Huston MD on 02/20/2022 Pathologic stage from 03/15/2022:Stage IB(pT2a, pN0, cM0) - Signed by Hi Huston MD on 07/24/2022 Status post lung surgery Encounters Date Type Department Care Team Description 09/14/2024 Telephone [facility] - Gastroenterology [facility] [address] [place] [phone] Emerson Chase MD 06/23/2024 1:30 PM [facility] [address] [place] [phone] Lee Medrano MD Small cell lung cancer, right lower lobe (HCC) (Primary Dx); Thyroid nodule Discharge Disposition: Discharged to home or Selfcare 06/23/2024 Results Follow-Up [facility] [address] [place] [address] Lorena Merino, CARGO TANK MECHANIC, M1A1 TANK CREWMAN 06/23/2024 Travel 06/21/2024 6:58 AM FOUNTAIN JERK - 06/21/2024 11:59 PM FOUNTAIN JERK Hospital Encounter [facility] Ultrasound [address] [place] [address] Lorena Merino, CARGO TANK MECHANIC, M1A1 TANK CREWMAN Discharge Disposition: Discharged to home or Selfcare 06/21/2024 Telephone [facility] [address] [place] [address] Lorena Merino, CARGO TANK MECHANIC, M1A1 TANK CREWMAN 06/21/2024 Travel from Last 3 Months Family History Medical History Relation Name Comments Heart Disease Brother Arden No Known Problems Daughter Alcohol Abuse Father Cirrhosis Father Alcohol Abuse Half-Brother 1 Cirrhosis Half-Brother 1 No Known Problems Half-Brother 2 Alcohol Abuse Half-Sister Wanda Chronic Obstructive Pulmonary Disease Half-Sister Col een No Known Problems Maternal Grandfather No Known Problems Maternal Grandmother Alcohol Abuse Mother Cirrhosis Mother Diabetes Mother No Known Problems Paternal Grandfather No Known Problems Paternal Grandmother Alcohol Abuse Sister 1 Jen Alcohol Abuse Sister 2 Cathlene Chronic Obstructive Pulmonary Disease Sister 2 Cat hlene Alcohol Abuse Sister 3 Kacy Alcohol Abuse Son Cirrhosis Son Cancer Neg Hx Relation Name Status Comments Brother Arden Daughter Alive Father Half-Brother 1 Half-Brother 2 Alive Half-Sister Wanda Maternal Grandfather Maternal Grandmother Mother Paternal Grandfather Paternal Grandmother Sister 1 Jen Alive Sister 2 Cathlene Sister 3 Kacy Alive Son Alive Social History Tobacco Use Types Packs/Day Years Used Date Smoking Tobacco: Former Cigarettes 0.5 44.7 1 979 - 03/2023 Smokeless Tobacco: Never Tobacco Cessation:Counseling Given: Not Answered Alcohol Use Standard Drinks/Week Comments Not Currently 0 (1 standard drink = 0.6 oz pur e alcohol) Rarely AUDIT-C Answer Date Recorded Frequency of Alcohol Consumption Never 11/18/2018 Average Number of Drinks Not on file 019 Frequency of Binge Drinking Not on file 11/07 PHQ-2 Answer Date Recorded Total Score - Questions 1-9 11 07/10 Sexually Active Control Partners Comments Not Currently Male Comments No Sex and Gender Information Value Date Recorded Sex Assigned at Not on file Legal Sex Female 7:54 PM CDT Gender Identity Not on file Sexual Orientation Not on file Last Filed Vital Signs Vital Sign Reading Time Taken Comments Blood Pressure 137/89 02/11/2024 1:09 PM CDT Pulse 94 02/11/2024 1:09 PM CDT Temperature 36.8 C (98.2 F) 02/11/2024 1:09 PM CDT Respiratory Rate 18 02/11/2024 1:09 PM CDT Oxygen Saturation 97% 02/11/2024 1:09 PM CDT Inhaled Oxygen Concentration - - Weight 59.9 kg (132 lb 1.6 oz) 02/11/2024 1:09 P M CDT Height 170.2 cm (5' 7 ) 02/11/2024 1:09 PM CDT Body Mass Index 20.69 02/11/2024 1:09 PM CDT Plan of Treatment Upcoming Encounters Date Type Department Care Team (Late st Contact Info) Description 09/23/2024 5:00 PM CDT Appointment [facility] [address] [place] [address] Lorena Merino, CARGO TANK MECHANIC, M1A1 TANK CREWMAN [address] [place] [address] Discharge Disposition: Discharged to home or Selfcare 10/13/2024 11:00 AM CDT Office Visit [facility] [address] [place] [address] Lee Medrano MD [address] [place] [address] Discharge Disposition: Discharged to home or Selfcare Health Maintenance Due Date Last Done Comments Hepatitis C Virus (HCV) Screening 1965 Pneumococcal Immunization (50+ years) (1 of 2 - PCV) 1982 Zoster Immunization (1 of 2) 1982 Cologuard 2013 Immunochemical Fecal Occult Blood 2013 SARS-COV-2 Immunization (2 - Pfizer risk series) 09/27/2021 09/06/2021 Respiratory Syncytial Virus (RSV) Immunization (Adult) (1 - Risk 60-74 years 1-dose series) 2023 Colonoscopy 09/17/2024 09/18/2023, 0406/2023, 12/15/2018 Colorectal Cancer Screening 09/17/2024 Mammogram 11/23/2024 11/24/2023, 12/0 01/2022, 06/25/2017 09/18/2023, 12/15/2018 DTaP/Tdap/Td Immunization Discontinued 12/22/2017 TdaP Immunization Completed 12/22/2017 Influenza Immunization Completed , 03/31/2023, 03/22/2022, Additional history exists Hepatitis B Immunization Aged Out No longer eligible based on patient's age to complete this topic Meningococcal Immunization (ACWY) Aged Out No longer eligible based on patient's age to complete this topic Rotavirus Immunization Aged Out No lo nger eligible based on patient's age to complete this topic Goals Goal Patient Goal Type Associated Problems Recent Progress Patient-Stated? Author I am anxious about the cancer and stuff. I have too many doctor appointments Behavioral Health Improving( 5:07 PM FOUNTAIN JERK) Yes Umm Lanza LCSW Note: Goal/Objective: Reduce anxious thoughts by processing them in therapeutic setting. Anticipated Time Frame for Goal Completion: 4 months Goal Reviewed with: patient Readiness to change: Ready to change Department associated with goal: [facility] Steps to achieve goal: will attend psychotherapy/counseling at least monthly at least 6 sessions and self disclose to have an outlet for distressing thoughts and feelings. will identify at least two ways to engage in self expression and to gain relief from distressing emotions and thoughts. will implement one other way, in addition to counseling, to engage in self expression and to gain relief from distressing emotions and thoughts. Depression Behavioral Health On track(2022 5:07 PM FOUNTAIN JERK) No Umm Lanza LCSW Note: Goal/Objective: Decrease symptoms of depression. Anticipated Time Frame for Goal Completion: 6 months Goal Reviewed with: patient Readiness to change: Ready to change Department associated with goal: [facility] Steps to achieve goal: will attend counseling/psychotherapy sessions at least once monthly, at least 6 sessions, utilizing individual and/or group sessions to express thoughts and feelings. to identify, verbalize and process at least three contributing factors/triggers to anxiety and depression. to identify and verbalize at least three actions/skills to prevent and/or cope with anxiety and depression. to put into action, at least one time weekly, for one month, an action/skill to prevent and or cope with anxiety and depression. Medical Devices Implanted Type Area Roofing Machine Tender Device Identifier Shelf Expiration Date Model / Serial / Lot Port Powerport Clearvue Isp Implantable W/8fr Folyurethane Catheter - [id number] Implanted:Qty: 1 on 05/06/2022 by Emerson Chase MD at [facility] IMPLANT Right: Chest Wall [employer] 07/09/2023 [id number] / [id number] / [id number] Description:RIGHT INTERNAL J UGULAR Procedures Procedure Name Priority Date/Time Associated Diagnosis Comments THYROID STIMULATING HORMONE (TSH) Routine 06/23/2024 1:56 PM FOUNTAIN JERK Thyroid nodule US THYROID Routine 06/21/2024 7:31 AM FOUNTAIN JERK Thyroid nodule GEO DIAG BILATERAL DIGITAL W CAD W ZAHIDA Routine 11/24/2023 10:23 AM CDT Localized swelling, mass and lump, trunk from Last 3 Months or Most Recently Relevant to Health Maintenance Results * THYROID STIMULATING HORMONE (TSH) (06/23/2024 1:56 PM FOUNTAIN JERK) TSH 0.981 0.300 - 5.000 mIU/L 06/23/2024 3:05 PM FOUNTAIN JERK [facility] Blood Venipuncture / Unknown 06/23/2024 1:56 PM FOUNTAIN JERK 06/23/2024 1:56 PM FOUNTAIN JERK us Lorena Merino APRN, M1A1 TANK CREWMAN CHEMISTRY ORDERABLES F inal Result [facility] [address] [place] [address] * US THYROID (06/21/2024 7:31 AM FOUNTAIN JERK) Anatomical Region Laterality Modality BODY N/A Ultrasound 06/21/2024 8:55 AM FOUNTAIN JERK Impressions 06/21/2024 8:57 AM FOUNTAIN JERK IMPRESSION: Bilateral thyroid nodules as described above. Follow-up ultrasound in 12 months is recommended to assess for stability as clinically indicated. ACR TI-RADS Risk Category: Please see above. REFERENCE: According to the ACR Thyroid Imaging, Reporting and Data System (TI-RADS): White Paper of the ACR TI-RADS Committee Oct, 2016 recommendations regarding the management of thyroid nodules are as follows: 1. TI-RADS 1: Risk of malignancy <2%, no FNA or follow up required. 2. TI-RADS 2: Risk of malignancy <2%, no FNA or follow up required. 3. TI-RADS 3: Risk of malignancy 2%-5%. Nodules 1.5 cm or greater follow up at 1, 3 and 5 years recommended, for nodules 2.5 cm or greater FNA recommended. 4. TI-RADS 4: Risk of malignancy 5%-20% Nodules 1.0 cm or greater follow up at 1, 2, 3 and 5 years recommended, for nodules 1.5 cm or greater FNA recommended 5. TI-RADS 5: Risk of malignancy >20%. Nodules 0.5 cm or greater annual follow up for 5 years recommended, for nodules 1.0 cm or greater FNA recommended. The ACT TI-RADS committee recommends targeting no more than two nodules for FNA. If three or more nodules meet criteria for FNA, the two with the most suspicious appearance based on ACR TI-RADS points should be sampled. Narrative 06/21/2024 8:57 AM FOUNTAIN JERK EXAM DESCRIPTION: US THYROID REASON FOR STUDY: thyroid nodule follow-up for thyroid nodule seen on prior chest CT. TECHNIQUE: Ultrasound of the thyroid was performed with grayscale and color doppler. COMPARISON: 05/19/2024 FINDINGS: RIGHT: The right thyroid lobe measures 6.3 x 1.8 x 1.5 cm. There is a homogeneous echotexture of the right thyroid lobe. Nodule 1: There is a mixed cystic and solid nodule in the inferior right thyroid lobe measuring 1.6 x 1.5 x 1.1 cm. TR 3. LEFT: The left thyroid lobe measures 4.8 x 1.4 x 1.0 cm. There is a homogeneous echotexture of the left thyroid lobe. Nodule 1: There is a predominantly solid isoechoic nodule in the inferior left thyroid lobe measuring 0.6 x 0.5 x 0.5 cm. TR 3. ISTHMUS: The isthmus appears grossly unremarkable measures 0.3 cm in the AP dimension. OTHER: No other significant finding. THIS IS AN ELECTRONICALLY VERIFIED FINAL REPORT 06/21/2024 8:55 AM - Electronically signed by Tim Easley D.O. PS: PS Report ID: [id number] Reading Location: [id number] Procedure Note Tim Easley DO - 06/21/2024 EXAM DESCRIPTION: US THYROID REASON FOR STUDY: thyroid nodule follow-up for thyroid nodule seen on prior chest CT. TECHNIQUE: Ultrasound of the thyroid was performed with grayscale and color doppler. COMPARISON: 05/19/2024 FINDINGS: RIGHT: The right thyroid lobe measures 6.3 x 1.8 x 1.5 cm. There is a homogeneous echotexture of the right thyroid lobe. Nodule 1: There is a mixed cystic and solid nodule in the inferior right thyroid lobe measuring 1.6 x 1.5 x 1.1 cm. TR 3. LEFT: The left thyroid lobe measures 4.8 x 1.4 x 1.0 cm. There is a homogeneous echotexture of the left thyroid lobe. Nodule 1: There is a predominantly solid isoechoic nodule in the inferior left thyroid lobe measuring 0.6 x 0.5 x 0.5 cm. TR 3. ISTHMUS: The isthmus appears grossly unremarkable measures 0.3 cm in the AP dimension. OTHER: No other significant finding. THIS IS AN ELECTRONICALLY VERIFIED FINAL REPORT 06/21/2024 8:55 AM - Electronically signed by Tim Easley D.O. PS: PS Report ID: [id number] Reading Location: [id number] IMPRESSION: Bilateral thyroid nodules as described above. Follow-up ultrasound in 12 months is recommended to assess for stability as clinically indicated. ACR TI-RADS Risk Category: Please see above. REFERENCE: According to the ACR Thyroid Imaging, Reporting and Data System (TI-RADS): White Paper of the ACR TI-RADS Committee Oct, 2016 recommendations regarding the management of thyroid nodules are as follows: 1. TI-RADS 1: Risk of malignancy <2%, no FNA or follow up required. 2. TI-RADS 2: Risk of malignancy <2%, no FNA or follow up required. 3. TI-RADS 3: Risk of malignancy 2%-5%. Nodules 1.5 cm or greater follow up at 1, 3 and 5 years recommended, for nodules 2.5 cm or greater FNA recommended. 4. TI-RADS 4: Risk of malignancy 5%-20% Nodules 1.0 cm or greater follow up at 1, 2, 3 and 5 years recommended, for nodules 1.5 cm or greater FNA recommended 5. TI-RADS 5: Risk of malignancy >20%. Nodules 0.5 cm or greater annual follow up for 5 years recommended, for nodules 1.0 cm or greater FNA recommended. The ACT TI-RADS committee recommends targeting no more than two nodules for FNA. If three or more nodules meet criteria for FNA, the two with the most suspicious appearance based on ACR TI-RADS points should be sampled. us Lorena Merino APRN, GABRIEL IMG US ORDERABLES Vianey hannah Result * GEO DIAG BILATERAL DIGITAL W CAD W ZAHIDA (11/24/2023 10:23 AM CDT) Anatomical Region Laterality Modality breast Bilateral Mammography 11/24/2023 9:42 AM CDT Narrative 11/24/2023 12:59 PM CDT - [facility] DIAG BILATERAL DIGITAL W CAD W ZAHIDA - GEO US BREAST LIMITED RT BILATERAL DIGITAL DIAGNOSTIC MAMMOGRAM 3D/2D WITH CAD WITH EXAGGERATED CC MEDIOLATERAL OBLIQUE CRANIOCAUDAL AND RIGHT ULTRASOUND: 11/24/2023 The study was acquired using digital technology and interpreted from soft copy. Current study was also evaluated with ICAD version 7.2. 2D digital mammographic views, as well as 3D digital tomosynthesis were performed in the CC and MLO projections. CLINICAL: Patient reports a new non-tender soft moveable lump in her right lower axilla. She also reports a chronic tender lump in the right lateral breast. Personal history of right lower lobe lung cancer. Port has been removed since her last exam. No family history of breast cancer. COMPARISONS: Comparison is made to exams dated: 05/16/2022, 05/16/2022, 01/09/2018, 06/25/2017 [facility], and 07/07/2012 [facility]. BREAST TISSUE:The tissue of both breasts is heterogeneously dense. This may lower the sensitivity of mammography. FINDINGS: No significant masses or calcifications are seen in either breast on the mammogram orTargeted right breast ultrasound. No lesions are seen underlying the area of concern at the 1 o'clock position of the right breast, 5 cm from the nipple. In the right axilla, there are benign-appearing lymph nodes. IMPRESSION: OVERALL STUDY BIRADS: 2 BENIGN There is no mammographic or sonographic evidence of malignancy. A 1 year screening mammogram is recommended. The results and recommendations were discussed with the patient. Electronically signed by: Vicki Duran M.D. ll/:11/24/2023 11:31:54 Signal Inspector(s): Jackie Mcclain, RT(R)(M), [facility]; Jackie Leal, [facility] letter sent: Normal Exam Reading location: [facility] OVERALL STUDY BIRADS: 2 Benign Procedure Note Vicki Duran MD - 11/24/2023 - GEO DIAG BILATERAL DIGITAL W CAD W ZAHIDA - GEO US BREAST LIMITED RT BILATERAL DIGITAL DIAGNOSTIC MAMMOGRAM 3D/2D WITH CAD WITH EXAGGERATED CC MEDIOLATERAL OBLIQUE CRANIOCAUDAL AND RIGHT ULTRASOUND: 11/24/2023 The study was acquired using digital technology and interpreted from soft copy. Current study was also evaluated with ICAD version 7.2. 2D digital mammographic views, as well as 3D digital tomosynthesis were performed in the CC and MLO projections. CLINICAL: Patient reports a new non-tender soft moveable lump in her right lower axilla. She also reports a chronic tender lump in the right lateral breast. Personal history of right lower lobe lung cancer. Port has been removed since her last exam. No family history of breast cancer. COMPARISONS: Comparison is made to exams dated: 05/16/2022, 05/16/2022, 01/09/2018, 06/25/2017 [facility], and 07/07/2012 [facility]. BREAST TISSUE:The tissue of both breasts is heterogeneously dense. This may lower the sensitivity of mammography. FINDINGS: No significant masses or calcifications are seen in either breast on the mammogram orTargeted right breast ultrasound. No lesions are seen underlying the area of concern at the 1 o'clock position of the right breast, 5 cm from the nipple. In the right axilla, there are benign-appearing lymph nodes. IMPRESSION: OVERALL STUDY BIRADS: 2 BENIGN There is no mammographic or sonographic evidence of malignancy. A 1 year screening mammogram is recommended. The results and recommendations were discussed with the patient. Electronically signed by: Vicki Duran M.D. ll/:11/24/2023 11:31:54 Signal Inspector(s): RT Arvin(R)(M), [facility]; Jackie Leal, [facility] letter sent: Normal Exam Reading location: [facility] OVERALL STUDY BIRADS: 2 Benign us Corutney Edelmira CARGO TANK MECHANIC, M1A1 TANK CREWMAN IMG MAMMO ORDERABLES Vianey l Result from Last 3 Months or Most Recently Relevant to Health Maintenance Insurance [employer]ICAID [employer] Care Teams Atmospheric Chemist Relationship Specialty Start Date End Date Courtney Hickey APRN, GABRIEL [address] [place] [address] PCP - General Family Medicine 11/18/18 Christo Casillas MD [address] [place] [address] Consulting Physician Pulmonary Disease 02/20/22 Lee Medrano MD [address] [place] [address] Consulting Physician Medical Oncology 02/20/22 Hi Huston MD [address] [place] [address] Consulting Physician Radiation Oncology 02/20/22 Jason Phipps MD [address] [place] [address] Consulting Physician Thoracic & Cardiac Surgery 02/22/22 Janae Diaz APRN, M1A1 TANK CREWMAN [address] [address] Nurse Practitioner Advanced Practice Nurse 01/03/22 Emerson Chase MD [address] [address] Consulting Physician Colon and Rectal Surgery 08/14/23
--- OUTSIDE RECORDS SUMMARY | 2024-09-18 17:47 | XMS_ITS | Encounter Summary ---
Author Organization [facility] Address [address] [place] [address] Phone Care Team Providers Care Wood Model Maker Name Role Phone Edelmira Courtney CISNEROS, PRODUCT SAFETY TEST ENGINEER Primary Care Provider [phone] Christo Casillas MD Unavailable Lee Medrano MD Unavailable Hi Huston MD Unavailable Jason Phipps MD Unavailable Janae Diaz APRN, [facility] Unavailable Emerson Chase MD Unavailable Encounter Details Date Type Department Care Team (Late st Contact Info) Description 07/12/2022 Telephone [facility] On[facility] Services [address] [place] [address] Lee Medrano MD [address] [place] [address] Social History Tobacco Use Types Packs/Day Years Used Date Smoking Tobacco: Former Cigarettes 0.5 43.5 0 1978 - 02/07/2022 Smokeless Tobacco: Never Alcohol Use Standard Drinks/Week Comments Yes 0 (1 standard drink = 0.6 oz pur e alcohol) Rarely AUDIT-C Answer Date Recorded Frequency of Alcohol Consumption Never 11/18/2018 Average Number of Drinks Not on file 019 Frequency of Binge Drinking Not on file 11/07 Sexually Active Control Partners Comments Not Currently Male Comments No Sex and Gender Information Value Date Recorded Sex Assigned at Not on file Legal Sex Female 7:54 PM CDT Gender Identity Not on file Sexual Orientation Not on file COVID-19 Exposure Response Date Recorded In the last 10 days, have yo u been in contact with someone who was confirmed or suspected to have Coronavirus/COVID-19? No / Unsure 07/09/2022 8:26 AM COOK ROAST documented as of this encounter Miscellaneous Notes * Telephone Encounter - Roselia Roman - 07/12/2022 9:21 AM CST Orthopedic referral faxed to Dr. Gooden for right shoulder pain @ [phone]. ROAST documented in this encounter Plan of Treatment Upcoming Encounters Date Type Department Care Team (Late st Contact Info) Description 09/23/2024 5:00 PM CDT [facility] [address] [place] [id number] Lorena Merino APRN, PRODUCT SAFETY TEST ENGINEER [address] [place] [address] Discharge Disposition: Discharged to home or Selfcare 10/13/2024 11:00 AM CDT [facility] [address] [place] [phone] Lee Medrano MD [address] [place] [address] Discharge Disposition: Discharged to home or Selfcare documented as of this encounter Visit Diagnoses Not on filedocumented in this encounter Care Teams Wood Model Maker Relationship Specialty Start Date End Date Courtney Hickey APRN, PRODUCT SAFETY TEST ENGINEER [address] [place] [address] PCP - General Family Medicine 11/18/18 Christo Casillas MD [address] [place] [address] Consulting Physician Pulmonary Disease 02/20/22 Lee Medrano MD [address] [place] [address] Consulting Physician Medical Oncology 02/20/22 Hi Huston MD [address] [place] [address] Consulting Physician Radiation Oncology 02/20/22 Jason Phipps MD [address] [place] [address] Consulting Physician Thoracic & Cardiac Surgery 02/22/22 Janae Diaz APRN, PRODUCT SAFETY TEST ENGINEER [address] [address] Nurse Practitioner Advanced Practice Nurse 01/03/22 Emerson Chase MD [address] [address] Consulting Physician Colon and Rectal Surgery 08/14/23 documented as of this encounter
--- OUTSIDE RECORDS SUMMARY | 2024-09-18 17:47 | XMS_ITS | Encounter Summary ---
Author Organization [facility] Address [address] [place] [address] Phone Care Team Providers Care Senior Patrol Agent Name Role Phone Edelmira Courtney CISNEROS, BUSINESS OFFICE COORDINATOR Primary Care Provider [phone] Christo Casillas MD Unavailable Lee Medrano MD Unavailable [phone] Hi Huston MD Unavailable [phone] Jason Phipps MD Unavailable Janae Diaz APRN [facility] Unavailable Emerson Chase MD Unavailable Reason for Visit * Reason Comments Medication Refill Encounter Details Date Type Department Care Team (Late st Contact Info) Description 07/03/2022 Refill [facility] On[facility] Services [address] [place] [address] Lee Medrano MD [address] [place] [address] Medication Refill Social History Tobacco Use Types Packs/Day Years [...] suspected to have Coronavirus/COVID-19? No / Unsure 06/26/2022 8:33 AM WIRE STRIPPER documented as of this encounter Miscellaneous Notes * Telephone Encounter - Judy Huff RN - 07/04/2022 3:40 PM WIRE STRIPPER Zyprexa refused r/t pt completing tx STRIPPER documented in this encounter Plan of Treatment Upcoming Encounters Date Type Department Care Team (Late st Contact Info) Description 09/23/2024 5:00 PM CDT [facility] [address] [place] [address] Lorena Merino APRN, BUSINESS OFFICE COORDINATOR [address] [place] [address] Discharge Disposition: Discharged to home or Selfcare 10/13/2024 11:00 AM CDT [facility] [address] [place] [address] Lee Medrano MD [address] [place] [address] Discharge Disposition: Discharged to home or Selfcare documented as of this encounter Visit Diagnoses Diagnosis Small cell lung cancer, right lower lobe (HCC) documented in this encounter Care Teams Senior Patrol Agent Relationship Specialty Start Date End Date Courtney Hickey APRN, BUSINESS OFFICE COORDINATOR [address] [place] [address] PCP - General Family Medicine 11/18/18 Christo Casillas MD [address] [place] [address] Consulting Physician Pulmonary Disease 02/20/22 Lee Medrano MD [address] [place] [address] Consulting Physician Medical Oncology 02/20/22 Hi Huston MD [address] [place] [address] Consulting Physician Radiation Oncology 02/20/22 Jason Phipps MD [address] [place] [address] Consulting Physician Thoracic & Cardiac Surgery 02/22/22 Janae Diaz APRN, BUSINESS OFFICE COORDINATOR #[address] [address] Nurse Practitioner Advanced Practice Nurse 01/03/22 Emerson Chase MD [address] [address] Consulting Physician Colon and Rectal Surgery 08/14/23 documented as of this encounter
--- OUTSIDE RECORDS SUMMARY | 2024-09-18 17:47 | XMS_ITS | Referral Summary ---
Author Organization [facility] Address [address] [place] [address] Care Team Providers Care Director Of Special Education Name Role Phone Edelmira Courtney Deluca NP Primary Care Provider [phone] Allergies Active Allergy Reactions Criticality Noted Date Comments Tramadol Other (See comments) Low 11/25/2018 seizures Medications acetaminophen (TYLENOL) 500 mg tabletIndication s:Pain Take 500 mg by mouth daily as needed for pain Active albuterol 2.5 mg /3 mL (0.083 %) nebulizer solutionIndicati ons:Chronic Obstructive Pulmonary Disease Inhale 2.5 mg 3 (three) times a day 9 Active gabapentin (NEURONTIN) 600 mg tabletIndication s:Neuropathic Pain Take 600 mg by mouth 4 (four) times a day 2 Active albuterol HFA (PROVENTIL HFA,VENTOLIN HFA,PROAIR HFA) 90 mcg/actuation inhalerIndicatio ns:Chronic Obstructive Pulmonary Disease 2 puffs every 6 (six) hours as needed for wheezing or shortness of breath for wheezing 2 Active multivitamin capsuleIndicatio ns:Vitamin Deficiency Prevention Take 1 capsule by mouth every morning Active guaiFENesin ER (MUCINEX) 600 mg 12 hr tablet Take 1 tablet (600 mg total) by mouth 2 (two) times a day for 3 doses 3 tablet 2 Active oxyCODONE (ROXICODONE) 15 mg immediate release tabletIndication s:Pain Take 0.5 tablets (7.5 mg total) by mouth every 4 (four) hours as needed for pain 30 tablet 2 Active Additional Information Patient not taking.Reported on 04/11/2022 polyethylene glycol (MIRALAX) 17 gram packetIndication s:constipation Take 1 packet (17 g total) by mouth daily 7 packet 2 Active Additional Information Patient not taking.Reported on 04/11/2022 busPIRone (BUSPAR) 5 mg tablet 2 Active Active Problems Patient Care Coordination No te Formatting of this note migh t be different from the original. Referring provider: Dr. Medrano and Dr. Huston Ms. Amanda Price is a 56-year-old with small cell lung cancer. She initially presented to the emergency room with sudden left hand pain radiating into her arm, shortness of breath and hemoptysis. On 12/17/2019 the patient underwent a chest x-ray which noted nodular opacities overlying the lung bases. On 12/16/2021 the patient underwent a CTA of the chest with and without contrast which noted a 3.6 cm right lower lobe lung mass. Additional findings included ununited sternal fracture with central lucency which could be pathologic fracture. There was peripheral bronchial wall thickening with confluent basilar opacities suggesting developing pneumonia or atelectasis. On 02/07/2020 the patient underwent a PET scan which showed the 3.5 cm nodular opacity in the right lower lobe which was markedly FDG avid and highly concerning for a primary lung cancer. There was moderate uptake associated with the ununited mid sternal body fracture. It was unclear if this is entirely on the basis of a healing fracture or if there is activity related to an underlying lesion. There is mild activity associated with the spinous processes of T10 and T9-T11 without convincing CT correlate. On 02/14/2020 the patient underwent a CT-guided biopsy of the right lung nodule. Final pathology was consistent with a poorly differentiated small cell carcinoma of the lung. On 02/21/2022 the patient underwent a brain MRI which showed no convincing enhancing parenchymal mass to suggest metastatic disease. The left sylvian fissure asymmetric enhancement is favored to be a vessel seen on end. Leptomeningeal metastasis is felt to be less likely. On 01/23/2022 the patient underwent pulmonary function testing which showed an FEV1 of 52% of predicted and a DLCO of 48% of predicted. She also underwent a 6 minute walk in which she was able to walk 457.2 m without the use of supplemental oxygen. Of note, patient does report falling sometime in the early summer of 2021 where she struck her anterior chest. She did not seek immediate medical attention for this. She states that she recently quit smoking. She has a 21.5 pack year smoking history. She also reports current drug use using cocaine and marijuana about 2 times per week. Patient presents today for further surgical evaluation. Problem Noted Date Diagnosed Date COPD (chronic obstructive pulmonary disease) Assessment & Plan (03/21/2022 9:28 AM CDT): - cont home inhalers - on RA CVA (cerebral vascular accident) 03/21/2022 Assessment & Plan (03/21/2022 9:29 AM CDT): Chronic lacunar infarct and chronic microvascular changes per MRI on 02/21/2022 - hx of - cont rehab - no residual FH: lung cancer 03/15/2022 Malignant neoplasm of lower lobe of right lung 0 02/28/2022 Overview (02/28/2022): Added automatically from request for surgery [id number] Assessment & Plan (03/22/2022 8:36 AM CDT): S/p RATS mediastinal lymph node dissection and RLL lobectomy 03/15 - Persistent chest tube air leak. - Chest tube clamped this morning - CXR ordered for 1200 - Multimodal pain control - OOBTA - Incentive spirometry 10x/hr - DVT prophylaxis - regular diet/bowel regimen Closed fracture of lateral portion of left tibia l plateau 04/30/2021 Immunizations Immunization Administration Dates Next Due Influenza, Quadrivalent, Spl it, Preservative Free, Intramuscular 03/22/2022 Social History Tobacco Use Types Packs/Day Years Used Date Smoking Tobacco: Some Days Cigarettes Smokeless Tobacco: Former Tobacco Cessation:Ready to Q uit: Not Asked; Counseling Given: Not Answered Alcohol Use Standard Drinks/Week Comments No 0 (1 standard drink = 0.6 oz pur e alcohol) AUDIT-C Answer Date Recorded Q1: How often do you have a drink containing alc ohol? Never 03/15/2022 Average Number of Drinks Not on file 10/07/2 022 Q3: How often do you have si x or more drinks on one occasion? Never 03/15/2022 Comments Unknown Sex and Gender Information Value Date Recorded Sex Assigned at Not on file Legal Sex Female 1:59 AM BROACH GRINDER Gender Identity Not on file Sexual Orientation Not on file Last Filed Vital Signs Vital Sign Reading Time Taken Comments Blood Pressure 128/73 04/11/2022 4:03 PM CDT Pulse 99 04/11/2022 4:03 PM CDT Temperature 36.6 C (97.9 F) 04/11/2022 4:03 PM CDT Respiratory Rate 18 04/11/2022 4:03 PM CDT Oxygen Saturation 92% 04/11/2022 4:03 PM CDT Inhaled Oxygen Concentration - - Weight 62.2 kg (137 lb 3.2 oz) 04/11/2022 4:03 P M CDT Height 165.1 cm (5' 5 ) 04/11/2022 4:03 PM CDT Body Mass Index 22.83 04/11/2022 4:03 PM CDT Plan of Treatment Not on file Procedures Procedure Name Priority Date/Time Associated Diagnosis Comments DIGITAL MAMMOGRAPHY Routine 07/07/2012 9 :28 AM BROACH GRINDER from Last 3 Months or Most Recently Relevant to Health Maintenance Results * DIGITAL MAMMOGRAPHY (07/07/2012 9:28 AM BROACH GRINDER) Anatomical Region Laterality Modality Breast Mammography 07/07/2012 9:28 AM BROACH GRINDER Narrative 07/07/2012 11:28 PM BROACH GRINDER COPY TO: DR. COLLINS SALAZAR Performed by: cd Screening Mamm Bi Acc#: [id number] DATE OF EXAM: Jul 07 2012 CLINICAL HISTORY: Routine screening. Bad historian, but may have had a right breast biopsy 1-2 years ago. Soreness in breasts bilaterally since starting a new medication 3 months ago. RESULT: Craniocaudal and mediolateral oblique views demonstrate localized dense parenchyma in upper outer quadrants, right more than left. Overall, fibroglandular density of the breasts is decreased compared to a mammogram on 08/14/04. Analog vs digital technique partially accounts for this. No dominant mass, skin thickening, nipple retraction or suspicious cluster of microcalcifications is seen. Digital technology was employed plus computer-aided detection software (R2) was utilized in interpretation of these images. This facility utilizes a reminder system to notify patients of yearly mammograms. IMPRESSION: 1. NO FINDING SUSPICIOUS FOR MALIGNANCY. 2. SOME INVOLUTION OF FIBROGLANDULAR TISSUE WELL DIFFERENCE INTECHNIQUE CAUSING BREAST TO APPEAR LESS DENSE BILATERALLY COMPARED TO 08/14/04. BI-RADS CATEGORY 2 - BENIGN Interpreting Physician: CARYN RICE M.D. Read on: Jul 07 2012 9:28A Transcribed by: peyman On: Jul 07 2012 10:31A Approved Electronically by: CARYN RICE M.D. on: Jul 07 2012 11:28P Ordering DR: DR CORRIE HESS Attending DR: DR CORRIE HESS Procedure Note Provider, MD Razia - 10/03/2016 COPY TO: DR. COLLINS SALAZAR Performed by: cd Screening Mamm Bi Acc#: [id number] DATE OF EXAM: Jul 07 2012 CLINICAL HISTORY: Routine screening. Bad historian, but may have had a right breast biopsy1-2 years ago. Soreness in breasts bilaterally since starting a newmedication 3 months ago. RESULT: Craniocaudal and mediolateral oblique views demonstrate localized denseparenchyma in upper outer quadrants, right more than left. Overall,fibroglandular density of the breasts is decreased compared to a mammogramon 08/14/04. Analog vs digital technique partially accounts for this. Nodominant mass, skin thickening, nipple retraction or suspicious cluster ofmicrocalcifications is seen. Digital technology was employed pluscomputer-aided detection software (R2) was utilized in interpretation ofthese images. This facility utilizes a reminder system to notify patientsof yearly mammograms. IMPRESSION: 1. NO FINDING SUSPICIOUS FOR MALIGNANCY. 2. SOME INVOLUTION OF FIBROGLANDULAR TISSUE WELL DIFFERENCEINTECHNIQUE CAUSING BREAST TO APPEAR LESS DENSE BILATERALLY COMPARED TO08/14/04. BI-RADS CATEGORY 2 - BENIGN Interpreting Physician: CARYN RICE M.D. Read on: Jul 07 20129:28A Transcribed by: peyman On: Jul 07 2012 10:31A Approved Electronically by: CARYN RICE M.D. on: Jul 07 201211:28P Ordering DR: DR CORRIE HESS Attending DR: DR CORRIE HESS us Historical Provider MD GARNER MAMMO PROCEDURES Vianey l Result from Last 3 Months or Most Recently Relevant to Health Maintenance Insurance [facility] PL[facility] Advance Directives For more information, please contact: [phone] * Full Code (Latest Code Status on File) Date Activated Date Inactivated Comments 03/15/2022 4:40 PM 03/23/2022 12:52 AM Care Teams Director Of Special Education Relationship Specialty Start Date End Date Courtney Hickey NP [address] [place] [address] PCP - General 04/26/21
--- OUTSIDE RECORDS SUMMARY | 2024-09-18 17:47 | XMS_ITS | Clinical Summary ---
Author Organization [facility] [employer] Address [address] [facility] [place] [address] Care Team Providers Care Mold Insert Changer Name Role Phone Roger Almanza PA-C Primary Care Provider [phone] Source Comments [facility] [employer],non-owned Affiliates and Associated Physician Practices is amultiple site organization consisting of ambulatory clinics and hospital sitesin [place], [place], [place] and [place]. This disclosure is being madepursuant to the Care Everywhere program and may not contain all information available regarding this patient. Last updated 18.[facility] [employer] Medications * Be aware that medications may not be up to date on this document. Alwaysverify current medications with the patient. gabapentin (NEURONTIN) 300 MG capsule Take 300 mg by mouth TID. 90 capsule 1 01/15/2017 Active DULoxetine (CYMBALTA) 60 MG capsule Take 60 mg by mouth DAILY. 30 capsule 1 01/15/2017 Active Active Problems Problem Noted Date Diagnosed Date Opioid dependence in remission 01/15/2017 Overview (09/08/2017): Admits to buying this off the street in the past. Gastro-esophageal reflux disease without esophag itis 01/15/2017 Personal history of other en docrine, nutritional and metabolic disease 01/15/2017 Personal history of other di seases of the musculoskeletal system and connective tissue 01/15/2017 Major depressive disorder, single episode 2016 Family History Medical History Relation Name Comments Diabetes - Type 1 Mother Asthma Sister Diabetes - Type 1 Sister Hyperlipidemia Sister Relation Name Status Comments Mother Sister Social History Tobacco Use Types Packs/Day Years Used Date Smoking Tobacco: Former Cigarettes Q uit: 2013 Smokeless Tobacco: Never Alcohol Use Standard Drinks/Week Comments No 0 (1 standard drink = 0.6 oz pur e alcohol) Comments Unknown Sex and Gender Information Value Date Recorded Sex Assigned at Not on file Legal Sex 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 Gender Identity Not on file Sexual Orientation Not on file Last Filed Vital Signs Vital Sign Reading Time Taken Comments Blood Pressure 122/64 01/15/2017 1:30 PM CDT Pulse 101 01/15/2017 1:30 PM CDT Temperature 36.6 C (97.9 F) 01/15/2017 1:30 PM CDT Respiratory Rate - - Oxygen Saturation - - Inhaled Oxygen Concentration - - Weight 79.3 kg (174 lb 12.8 oz) 01/15/2017 1:30 PM CDT Height 170.2 cm (5' 7 ) 01/15/2017 1:30 PM CDT Body Mass Index 27.38 01/15/2017 1:30 PM CDT Plan of Treatment Health Maintenance Due Date Last Done Comments COLOGUARD (AGES 45-75) - COL ON CA SCREENING 1963 COLON MONITORING 1963 COLONOSCOPY - COLON CA SCREENING 1963 CT COLONOGRAPHY - COLON CA SCREENING 1963 Colorectal Cancer Screening 1963 FIT - COLON CA SCREENING 1963 FLEX SIG - COLON CA SCREENING 1963 MAMMOGRAM 1963 PAP SMEAR 1963 HIV SCREENING 1978 HEPATITIS C SCREENING 07/18/1981 DTAP/TDAP/TD VACCINES (1 - Tdap) 1982 PNEUMOCOCCAL VACCINE 50+ (1 of 1 - PCV) 2013 ZOSTER VACCINE (1 of 2) 2013 LIPID TESTING 01/15/2022 01/15/2017, 01/15/2017 COVID-19 VACCINE ( - 2023-2 5 season) 2024 DEPRESSION SCREENING 06/09/2024 INFLUENZA VACCINE (Season Ended) 2025 Respiratory Syncytial Virus (RSV) Vaccine Pt: or over 60 yrs (1 - 1-dose 75+ series) 2038 HEPATITIS B VACCINE Aged Out No longe r eligible based on patient's age to complete this topic HIB VACCINE Aged Out No longer eligi ble based on patient's age to complete this topic HPV VACCINE Aged Out No longer eligi ble based on patient's age to complete this topic MENINGOCOCCAL (Group B) VACCINE SHARED DECISION-MAKING Aged Out No longer eligible based on patient's age to complete this topic MENINGOCOCCAL GROUPS A/C/Y/W VACCINE Aged Out No longer eligible b ased on patient's age to complete this topic PNEUMOCOCCAL VACCINE Aged Out No long er eligible based on patient's age to complete this topic Procedures Procedure Name Priority Date/Time Associated Diagnosis Comments LIPID PROFILE - POINT OF CARE (AMB) [facility] Routine 01/15/2017 1:56 PM CDT from Last 3 Months or Most Recently Relevant to Health Maintenance Results * LIPID PROFILE - POINT OF CARE (AMB) [facility] (01/15/2017 1:56 PM CDT) Cholesterol Total 142 [facility] HDL 47 mg/dL [facility] Triglycerides 112 mg/dL [facility] LDL Calculated 73 [facility] 01/15/2017 1:56 PM CDT Roger Almanza PA-C LAB - POINT OF CARE ORDERABLES Final Result [address] from Last 3 Months or Most Recently Relevant to Health Maintenance Insurance Care Teams Mold Insert Changer Relationship Specialty Start Date End Date Roger Almanza PA-C PCP - General 01/26/17
--- OUTSIDE RECORDS SUMMARY | 2024-09-18 17:47 | XMS_ITS | Continuity of Care Document ---
Author Organization [facility] Address [address] [facility] [place] [address] [place] [address] Phone Care Team Providers Care Tuber Operator Name Role Phone Chau Bauer MD Unavailable Unavailable Allergies, Adverse Reactions, Alerts Substance Reaction Status Criticality No Known Allergies Active No Inform ation Medications Medication Instructions Dosage Effective Dates (start - stop) Status Comments Nicoderm CQ 14 mg/24 hr daily Patch apply 1 patch (14MG) by transdermal route every day 14 MG - Active [place] 10 mg-325 mg tablet take 1 by Oral route 4 times every day 1 - Active avoid driving or operate machines Xanax 1 mg tablet take 1 tablet (1MG) by oral route every 4 - 6 hours 1 MG - Active PRN for anxiety, avoid driving or operate machines Procedures Procedure Date OFFICE/OUTPATIENT VISIT, EST OFFICE/OUTPATIENT VISIT, EST OFFICE/OUTPATIENT VISIT, EST OFFICE/OUTPATIENT VISIT, EST PREV VISIT, NEW, AGE 40-64 Advance Directives Directive Yes / No Effective Date File Name No Information Encounters Encounter Description Practice Location Reason(s) For Visit Diagnoses Date Provider Providers Copied on Encounter [facility], [address] [place], [id number], [place] tel:[phone] [facility] No Information 3 Juancarlos Ritchie. [address] [place], [address] , [place]. tel:[phone] Referring Provider: Chau Bauer, [address] [place], [place], [address]. tel:[phone] OFFICE/OUTPA TIENT VISIT, [facility], [address], [place], [place], [address], [place] tel:[phone] [facility] neck apin (chief complaint) anxiety (chief complaint) Dietary surveillance and counselingCHRONIC PAIN NECGeneralized anxiety disorderTobacco Abuse 3 Juancarlos Ritchie. [address], [place], [place], [address] , [place]. tel:[phone] Referring Provider: Michel Freire [address], [place], [place], [address]. tel:[phone] OFFICE/OUTPA TIENT VISIT, [facility], [address], [place], [place], [address], [place] tel:[phone] [facility] chronic pain (chief complaint) anxiety (chief complaint) tobacco (chief complaint) Dietary surveillance and counselingDisplacem ent of cervical intervertebral disc without myelopathyCHRONIC PAIN NECGeneralized anxiety disorder 3 Juancarl[address] Ritchie. [address], [place], [place], [address] , [place]. tel:[phone] Referring Provider: Chau Bauer [address], [place], [place], [address]. tel:[phone] OFFICE/OUTPA TIENT VISIT, [facility], [address], [place], [place], [address], [place] tel:[phone] [facility] neck pain (chief complaint) tobacco (chief complaint) anxiety (chief complaint) sore throat (chief complaint) Dietary surveillance and counselingCHRONIC PAIN NECGeneralized anxiety disorderThroat pain 3 Juancarlos Ritchie. [address], [place], [place], [address] , [place]. tel:[phone] Referring Provider: Michel Freire [address], [place], [place], [address]. tel:[phone] OFFICE/OUTPA TIENT VISIT, [facility], [address], [place], [place], [address], tel:[phone] [facility] Chronic pain (chief complaint) anxiety (chief complaint) Dietary surveillance and counselingCHRONIC PAIN NECGeneralized anxiety disorderDisplacemen t of cervical intervertebral disc without myelopathy 2 3 [address]anc[address] Ritchie. [address], [place], [place], [address] , . tel:[phone] Referring Provider: Michel Freire [address], [place], [place], [address]. tel:[phone] PREV VISIT, NEW, AGE 40-64 [facility], [address] [place] [place], [place], [address], tel:[phone] [facility] Physical (chief complaint) Dietary surveillance and counselingRoutine Medical ExamRoutine Medical Exam 0 3 Juancarlos Ritchie. [address], [place], [place], [address] , . tel:[phone] Referring Provider: Michel Freire [address], [place], [place], [address]. tel:[phone] Family History Family Member Type Diagnosis Age At Onset Mother Problem (finding) Back Pain Sister Problem (finding) Alcoholism Mother Problem (finding) Diabetes mellitus Father Problem (finding) Alcoholism Payers Payer name Insurance type Covered libertarian ID Authoriza tion(s) No Information Social History Type Description Quantity Date Captured Comments Sex Female Smoking Status No Information Chief Complaint And Reason For Visit No Information Plan Of Treatment Date Type Action Status Goal Tobacco cessation counseling completed Goal Tobacco cessation counseling completed Goal Tobacco cessation counseling completed Goal Tobacco cessation counseling completed Referral Referred To: Physical Therapy Ordered: Referral: Physical Therapy. ordered Referral Ordered: MRI NECK SPINE W/O DYE ordered Referral Ordered: Referral: Neurosurgery. ordered History Of Present Illness Encounter Date Complaint History Of Prese nt Illness No Information Instructions Date Instruction Additional Infor mation Dietary counseling Related to Di etary surveillance counseling Decrease caloric intake Related to Dietary surveillance counseling Dietary counseling Related to Di etary surveillance counseling Decrease caloric intake Related to Dietary surveillance counseling Decrease caloric intake Related to Dietary surveillance counseling Dietary counseling Related to Di etary surveillance counseling Dietary counseling Related to Di etary surveillance counseling Decrease caloric intake Related to Dietary surveillance counseling Decrease caloric intake Related to Dietary surveillance counseling Dietary counseling Related to Di etary surveillance counseling Assessments Type Assessment Date No Information
--- OUTSIDE RECORDS SUMMARY | 2024-09-18 17:47 | XMS_ITS | Clinical Summary ---
Author Organization [facility] Address [address] [place] [address] Care Team Providers Care Grain Sampler Name Role Phone Edelmira Courtney Deluca NP Primary Care Provider [phone] Allergies Active Allergy Reactions Criticality Noted Date [...] (02/28/2022): Added automatically from request for surgery [id number] Assessment & Plan (03/22/2022 8:36 AM CDT): [...] Quadrivalent, Spl it, Preservative Free, Intramuscular 03/22/2022 Surgical History Surgery Date Site/Laterality Comments KNEE SURGERY HYSTERECTOMY BACK SURGERY lumbar Medical History Medical History Date Comments Peripheral neuropathy Rheumatoid arthritis (HCC) Osteoporosis Osteoarthritis COPD (chronic obstructive pulmonary disease) (HC C) Family History Medical History Relation Name Comments Alcohol abuse Other Arthritis Other Diabetes Other Mental illness Other Anesthesia problems Neg Hx Malig Hypertension Neg Hx Malig Hyperthermia Neg Hx Pseudochol deficiency Neg Hx Relation Name Status Comments Other Social History Tobacco Use Types Packs/Day Years [...] Average Number of Drinks Not on file 022 Q3: How often do you have si x or more drinks on one occasion? Never 03/15/2022 Comments Unknown Sex and Gender Information Value Date Recorded Sex Assigned at Not on file Legal Sex Female 1:59 AM INTERNATIONAL FLIGHT ATTENDANT Gender Identity Not on file Sexual Orientation Not on file Obstetrics History Last Filed Vital Signs Vital Sign Reading [...] 04/11/2022 4:03 PM CDT Plan of Treatment Health Maintenance Due Date Last Done Comments Colon Cancer Screening-Colonoscopy 1963 Depression Screening 1963 Hepatitis C Screening 1963 Hepatitis B Screening 1981 Regular Well Visit/Exam 18-64 1981 Pneumococcal vaccine <65 (1 of 2 - PCV) 1982 Zoster Vaccine (1 of 2) 2013 Covid-19 Vaccine (2 - 2023-2 5 season) 2024 09/06/2021 Breast Cancer Screening-Mammogram 11/23/2024 11/24/2023, 11/24/2023, 06/11/2023, Additional history exists DTaP/Tdap/Td Vaccine (2 - Td or Tdap) 12/23/2027 12/22/2017 Influenza Vaccine Completed 04/05/2024, , 03/22/2022, Additional history exists Procedures Procedure Name Priority Date/Time Associated Diagnosis Comments DIGITAL MAMMOGRAPHY Routine 07/07/2012 9 :28 AM INTERNATIONAL FLIGHT ATTENDANT from Last 3 Months or Most Recently Relevant to Health Maintenance Results * DIGITAL MAMMOGRAPHY (07/07/2012 9:28 AM INTERNATIONAL FLIGHT ATTENDANT) Anatomical Region Laterality Modality Breast Mammography 07/07/2012 9:28 AM INTERNATIONAL FLIGHT ATTENDANT Narrative 07/07/2012 11:28 PM INTERNATIONAL FLIGHT ATTENDANT COPY TO: DR. COLLINS SALAZAR Performed by: cd Screening Mamm Bi Acc#: [id number] DATE OF EXAM: Jul 07 2012 CLINICAL [...] Performed by: cd Screening Mamm Bi Acc#: [id number] DATE OF EXAM: Jul 07 2012 CLINICAL [...] CORRIE HESS Attending DR: DR CORRIE HESS Historical Provider MD GARNER MAMMO PROCEDURES Vianey l Result from Last 3 Months or Most Recently Relevant to Health Maintenance Insurance [facility] Advance Directives For more information, please contact: [phone] * Full Code (Latest Code Status on File) Date Activated Date Inactivated Comments 03/15/2022 4:40 PM 03/23/2022 12:52 AM Care Teams Grain Sampler Relationship Specialty Start Date End Date Hickey, Courtney Deluca NP [address] [place] [address] PCP - General 04/26/21
--- OUTSIDE RECORDS SUMMARY | 2024-09-18 17:47 | XMS_ITS | Encounter Summary ---
Author Organization [facility] Address [address] [place] [address] Phone Care Team Providers Care Corrections Officer Name Role Phone Edelmira, Courtney CISNEROS, PROGRAMMER OR ANALYST Primary Care Provider [phone] Christo Casillas MD Unavailable Lee Medrano MD Unavailable Hi Huston MD Unavailable [phone] Jason Phipps MD Unavailable Janae Diaz APRN, [facility] Unavailable Emerson Chase MD Unavailable Encounter Details Date Type Department Care Team (Late st Contact Info) Description 04/29/2022 [facility] II [address] [place] [id number] Emerson Chase MD [address] [address] Social History Tobacco Use Types Packs/Day [...] suspected to have Coronavirus/COVID-19? No / Unsure 04/30/2022 10:23 AM CULLET WASHER documented as of this encounter Plan of Treatment Upcoming Encounters Date Type Department Care Team (Late st Contact Info) Description 09/23/2024 5:00 PM CDT [facility]ointment [facility] [address] [place] [address] Lorena Merino APRN, PROGRAMMER OR ANALYST [address] [place] [address] Discharge Disposition: Discharged to home or Selfcare 10/13/2024 11:00 AM CDT [facility] [address] [place] [address] Lee Medrano MD [address] [place] [address] Discharge Disposition: Discharged to home or Selfcare documented as of this encounter Visit Diagnoses Not on filedocumented in this encounter Care Teams Corrections Officer Relationship Specialty Start Date End Date Courtney Hickey APRN, PROGRAMMER OR ANALYST [address] [place] [address] PCP - General Family Medicine 11/18/18 Christo Casillas MD [address] [place] [address] Consulting Physician Pulmonary Disease 02/20/22 Lee Medrano MD [address] [place] [address] Consulting Physician Medical Oncology 02/20/22 Hi Huston MD [address] [place] [address] Consulting Physician Radiation Oncology 02/20/22 Jason Phipps MD [address] [place] [address] Consulting Physician Thoracic & Cardiac Surgery 02/22/22 Janae Diaz APRN, GABRIEL #[address] [address] Nurse Practitioner Advanced Practice Nurse 01/03/22 Emerson Chase MD #[address] [address] Consulting Physician Colon and Rectal Surgery 08/14/23 documented as of this encounter
--- OUTSIDE RECORDS SUMMARY | 2024-09-18 17:47 | XMS_ITS | Clinical Summary ---
Author Organization [facility] Address [address] [place] [address] Care Team Providers Care Telephone Technician Name Role Phone Unavailable Primary Care Provider Unavailabl e Social History Tobacco Use Types Packs/Day Years Used Date Smoking Tobacco: Never Assessed Comments Unknown Sex and Gender Information Value Date Recorded Sex Assigned at Not on file Legal Sex Female 4:53 PM CDT Gender Identity Not on file Sexual Orientation Not on file Plan of Treatment Health Maintenance Due Date Last Done Comments Cervical Cancer Screening Pa p Smear (Age 30 to 64) Every 3 Years 1963 Colorectal Cancer Screening Colonoscopy (10 Years) 1963 Annual Physical 1966 Hepatitis C 1981 DTaP, Tdap and Td Vaccines ( 1 - Tdap) 1982 Cervical Cancer Screening Pa p with HPV Testing (Age 30 to 64) Every 5 Years 1993 Cervical Cancer Screening with HPV 1993 Mammogram Screening 2003 Zoster Vaccines (1 of 2) 2013 COVID-19 Vaccine (2023-2 5 season) 2024 RSV Immunization or 60+ Years (1 - 1-dose 75+ series) 2038 Meningococcal B Vaccine Aged Out No l onger eligible based on patient's age to complete this topic Meningococcal Vaccine Aged Out No arnulfo daisy eligible based on patient's age to complete this topic Pneumococcal Vaccine: Pediat rics (0 to 5 Years) and At-Risk Patients (6 to 64 Years) Aged Out No longer eligible b ased on patient's age to complete this topic RSV Immunizations Under 20 Months Aged Out No longer eligible based on patient's age to complete this topic
--- OUTSIDE RECORDS SUMMARY | 2024-09-18 17:47 | XMS_ITS | Encounter Summary ---
Author Organization [facility] Address [address] [place] [address] Phone Care Team Providers Care Vp Software Support Name Role Phone Edelmira, Courtney CISNEROS, STAFFING EXECUTIVE Primary Care Provider [phone] Christo Casillas MD Unavailable Lee Medrano MD Unavailable Hi Huston MD Unavailable Jason Phipps MD Unavailable [phone] Janae Diaz APRN, [facility] Unavailable [phone] Emerson Chase MD Unavailable Encounter Details Date Type Department Care Team (Late st Contact Info) Description 09/14/2024 Telephone [facility] - [place] [address] [place] [address] Emerson Chase MD #[address] [address] Social History Tobacco Use Types Packs/Day Years Used Date Smoking Tobacco: Former Cigarettes 0.5 44.7 1 97 - 03/2023 Smokeless Tobacco: Never Alcohol Use Standard Drinks/Week Comments Not Currently [...] on file Sexual Orientation Not on file documented as of this encounter Miscellaneous Notes * Telephone Encounter - Winnie Norman - 09/14/2024 8:14 AM CDT Patient received recall letter to schedule colonoscopy procedure. documented in this encounter Plan of Treatment Upcoming Encounters Date Type Department Care Team (Late st Contact Info) Description 09/23/2024 5:00 PM CDT [facility]ment [facility] [address] [place] [address] Lorena Merino, DIRECTOR OF IT OPERATIONS, STAFFING EXECUTIVE [address] [place] [address] Discharge Disposition: Discharged to home or Selfcare 10/13/2024 11:00 AM CDT [facility] [address] [place] [address] Lee Medrano MD [address] [place] [address] Discharge Disposition: Discharged to home or Selfcare documented as of this encounter Goals Goal Patient Goal Type Associated Problems Recent Progress Patient-Stated? Author I am anxious about the cancer and stuff. I have too many doctor appointments Behavioral Health Improving( 5:07 PM TURBINE ENGINE ASSEMBLER) Yes Umm Lanza, LINETTE Note: Goal/Objective: Reduce anxious thoughts by processing them in therapeutic setting. Anticipated Time Frame for Goal Completion: 4 months Goal Reviewed with: patient Readiness to change: Ready to change Department associated with goal: [facility] Steps to achieve goal: [...] Depression Behavioral Health On track(2022 5:07 PM TURBINE ENGINE ASSEMBLER) Umm Oates LCSW Note: Goal/Objective: Decrease symptoms of depression. Anticipated Time Frame for Goal Completion: 6 months Goal Reviewed with: patient Readiness to change: Ready to change Department associated with goal: [facility] Steps to achieve goal: [...] and or cope with anxiety and depression. documented as of this encounter Visit Diagnoses Not on filedocumented in this encounter Additional Health Concerns Assessment Noted Time PHQ-9 Depression Total Score: 11 023 10:00 AM TURBINE ENGINE ASSEMBLER documented as of this encounter Care Teams Vp Software Support Relationship Specialty Start Date End Date Courtney Hickey APRN, STAFFING EXECUTIVE [address] [place] [address] PCP - General Family Medicine 11/18/18 Christo Casillas MD [address] [place] [address] Consulting Physician Pulmonary Disease 02/20/22 Lee Medrano MD [address] [place] [address] Consulting Physician Medical Oncology 02/20/22 Hi Huston MD [address] [place] [address] Consulting Physician Radiation Oncology 02/20/22 Jason Phipps MD [address] [place] [address] Consulting Physician Thoracic & Cardiac Surgery 02/22/22 Janae Diaz APRN, STAFFING EXECUTIVE #[address] [address] Nurse Practitioner Advanced Practice Nurse 01/03/22 Emerson Chase MD #[address] [address] Consulting Physician Colon and Rectal Surgery 08/14/23 documented as of this encounter
--- OUTSIDE RECORDS SUMMARY | 2024-09-18 17:47 | XMS_ITS | Encounter Summary ---
Author Organization [facility] Address [address] [place] [address] Phone Care Team Providers Care Health And Human Performance Professor Name Role Phone Edelmira, Courtney CISNEROS, HAIR STYLIST Primary Care Provider [phone] Christo Casillas MD Unavailable Lee Medrano MD Unavailable [phone] Hi Huston MD Unavailable [phone] Jason Phipps MD Unavailable [phone] Janae Diaz APRN, [facility] Unavailable Emerson Chase MD Unavailable Encounter Details Date Type Department Care Team (Late st Contact Info) Description 04/30/2022 [facility] [address] [place] [address] Emerson Chase MD #[address] [address] Pre-op testing (Primary Dx) Social History Tobacco Use Types Packs/Day Years [...] suspected to have Coronavirus/COVID-19? No / Unsure 05/03/2022 11:16 AM STOCK LAYER documented as of this encounter Plan of Treatment Upcoming Encounters Date Type Department Care Team (Late st Contact Info) Description 09/23/2024 5:00 PM CDT [facility] [address] [place] [address] Lorena Merino, ELECTRICAL TECH, HAIR STYLIST [address] [place] [address] Discharge Disposition: Discharged to home or Selfcare 10/13/2024 11:00 AM CDT [facility] [address] [place] [address] Lee Medrano MD [address] [place] [address] Discharge Disposition: Discharged to home or Selfcare documented as of this encounter Results * SARS-COV-2 BY MOLECULAR (05/03/2022 11:23 AM STOCK LAYER) SARSCOV2 NOT DETECTED (Referenc e Range for this test is Not Detected) [facility] CURRAN ID NOW 05/03/2022 11:46 AM STOCK LAYER [facility] Comment:This test was perfor med by a MOLECULAR, NON-PCR method Other NASOPHARYNGEAL STRUCTURE / Unknown Non-Phlebotomy Collection / Unknown 05/03/2022 11:23 AM STOCK LAYER 05/03/2022 11:27 AM STOCK LAYER Narrative [facility] - 05/03/2022 11:46 AM STOCK LAYER This test has been authorized by the FDA under an Emergency Use Authorization (EUA) only. Negative results should be treated as presumptive and, if inconsistent with clinical signs and symptoms or necessary for patient management, the patient should be tested with an alternative molecular assay. Negative results do not preclude SARS-CoV-2 infection or any other respiratory pathogen. Additional information for Clinicians can be found at: https://www.fda.gov/media/141240/download Additional information for Patients can be found at: https://www.fda.gov/media/098717/download Emerson Chase MD MICROBIOLOGY - GENERAL ORDERABLE S Final Result [facility] [address] [place] [address] documented in this encounter Visit Diagnoses Diagnosis Pre-op testing- Primary Preoperative examination, unspecified documented in this encounter Care Teams Health And Human Performance Professor Relationship Specialty Start Date End Date Courtney Hickey APRN, GABRIEL [address] [place] [address] PCP - General Family Medicine 11/18/18 Christo Casillas MD [address] [place] [address] Consulting Physician Pulmonary Disease 02/20/22 Lee Medrano MD [address] [place] [address] Consulting Physician Medical Oncology 02/20/22 Hi Huston MD [address] [place] [address] Consulting Physician Radiation Oncology 02/20/22 Jason Phipps MD [address] [facility] [place] [address] Consulting Physician Thoracic & Cardiac Surgery 02/22/22 Janae Diaz APRN, GABRIEL #2 [facility] [address] [place] [address] Nurse Practitioner Advanced Practice Nurse 01/03/22 Emerson Chase MD [address]2 [facility] [address] [place] [address] Consulting Physician Colon and Rectal Surgery 08/14/23 documented as of this encounter
--- OUTSIDE RECORDS SUMMARY | 2024-09-18 17:47 | XMS_ITS ---
Author Organization [facility] Address [address] [place] [address] Phone Care Team Providers Care Hoop Punch And Coiler Operator Helper Name Role Phone Edelmira, Courtney CISNEROS, DOCTOR OF AUDIOLOGY Primary Care Provider [phone] Christo Casillas MD Unavailable Lee Medrano MD Unavailable Hi Huston MD Unavailable Jason Phipps MD Unavailable Janae Diaz APRN, [facility] Unavailable Emerson Chase MD Unavailable Active Problems Problem Noted Date Diagnosed Date [...] IB(pT2a, pN0, cM0) - Signed by Hi Hutson MD on 07/24/2022 Status post lung surgery Current Treatment and Therapy Plans [facility]: CISplatin / Etoposide - 21 Day Cycle - Small Cell Lung* Plan Start Date: 02/25/2022 Plan Provider:Lee Medrano MD Linked Problems Small cell lung cancer, righ t lower lobe (HCC) Treatment Medications CISplatin (PLATINOL) chemo infusionetoposide joey mo infusion Past Treatment and Therapy Plans ONCOLOGY TREATMENT Plan Name Start Date Discontinue Date Treatment Medications Discontinue Reason Plan Provider Cycles [facility]: CISplatin / Etoposide - 21 Day Cycle - Small Cell Lung 02/27/20 22 02/19/2022 CISplatin (PLATINOL) chemo infusionetoposide chemo infusion Therapy Complete Lee Medrano MD Treatment not started Lifetime Dose Tracking * Chemical Lifetime Dose Automatic Entry Manual Entr y Cisplatin 271.269 mg/m2 (507.6 mg) 271.269 mg/m2 (5 07.6 mg) 0 mg/m2 (0 mg)
--- OUTSIDE RECORDS SUMMARY | 2024-09-18 17:49 | XMS_ITS | Continuity of Care Document ---
Author Organization [facility] Address [address] [place] [address] [place] [address] Phone Care Team Providers Care Independent Living Instructor Name Role Phone Chau Bauer MD Unavailable Unavailable Allergies, Adverse Reactions, Alerts Substance Reaction Status Criticality No Known Allergies Active No Inform ation Medications Medication Instructions Dosage Effective Dates (start - stop) Status Comments Xanax 1 mg tablet take 1 tablet (1MG) by oral route every 4 - 6 hours 1 MG - Active PRN for anxiety, avoid driving or operate machines [place] 10 mg-325 mg tablet take 1 by Oral route 4 times every day 1 - Active avoid driving or operate machines Nicoderm CQ 14 mg/24 hr daily Patch apply 1 patch (14MG) by transdermal route every day 14 MG - Active Procedures Procedure Date OFFICE/OUTPATIENT VISIT, EST OFFICE/OUTPATIENT VISIT, EST OFFICE/OUTPATIENT VISIT, EST OFFICE/OUTPATIENT VISIT, EST PREV VISIT, NEW, AGE 40-64 Advance Directives Directive Yes / No Effective Date File Name No Information Encounters Encounter Description Practice Location Reason(s) For Visit Diagnoses Date Provider Providers Copied on Encounter [facility], [address] [place], [id number], [place] tel:[phone] [facility] No Information 3 Juancarlos Ritchie. [address], [place], [id number] , [place]. tel:[phone] Referring Provider: Chau Bauer, [address], [id number]. tel:[phone] OFFICE/OUTPA TIENT VISIT, [facility], [address], [place], [place], [id number], [place] tel:[phone] [facility] neck apin (chief complaint) anxiety (chief complaint) Dietary surveillance and counselingCHRONIC PAIN NECGeneralized anxiety disorderTobacco Abuse 3 Juancarlos Ritchie. [address], [place], [place], [address] , [place]. tel:[phone] Referring Provider: Michel Freire [address], [place], [place], [id number]. tel:[phone] OFFICE/OUTPA TIENT VISIT, [facility], [address], [place], [place], [id number], [place] tel:[phone] [facility] chronic pain (chief complaint) anxiety (chief complaint) tobacco (chief complaint) Dietary surveillance and counselingDisplacem ent of cervical intervertebral disc without myelopathyCHRONIC PAIN NECGeneralized anxiety disorder 3 Juancarlos Ritchie. [address], [place], [place], [address] , [place]. tel:[phone] Referring Provider: Chau Bauer [address], [place], [place], [address]. tel:[phone] OFFICE/OUTPA TIENT VISIT, [facility], [address], [place], [place], [id number], [place] tel:[phone] [facility] neck pain (chief complaint) tobacco (chief complaint) anxiety (chief complaint) sore throat (chief complaint) Dietary surveillance and counselingCHRONIC PAIN NECGeneralized anxiety disorderThroat pain 3 Juancarlos Ritchie. [address], [place], [place], [address] , [place]. tel:[phone] Referring Provider: Michel Fre[address], [place], [place], [address]. tel:[phone] OFFICE/OUTPA TIENT VISIT, [facility], [address], [place], [place], [address], tel:[phone] [facility] Chronic pain (chief complaint) anxiety (chief complaint) Dietary surveillance and counselingCHRONIC PAIN NECGeneralized anxiety disorderDisplacemen t of cervical intervertebral disc without myelopathy 2 3 Juancarlos Ritchie. [address], [place], [place], [address] , . tel:[phone] Referring Provider: Michel Fre[address], [place], [place], [address]. tel:[phone] PREV VISIT, NEW, AGE 40-64 [facility], [address], [id number], tel:[phone] [facility] Physical (chief complaint) Dietary surveillance and counselingRoutine Medical ExamRoutine Medical Exam 0 3 Juancarlos Ritchie. [address], [place], [place], [address] , . tel:[phone] Referring Provider: Michel Fre[address], [place], [place], [address]. tel:[phone] Family History Family Member Type Diagnosis Age [...] caloric intake Related to Dietary surveillance counseling Assessments Type Assessment Date No Information
--- NOTE | 2024-09-18 18:29 | ED.GENADULT ---
HPI - General Adult General Chief complaint: Upper Respiratory Infection Stated complaint: Cough/Tightness to Chest Source: patient Mode of arrival: ambulatory Limitations: no limitations History of Present Illness HPI narrative: Patient presents for evaluation of respiratory symptoms. Symptom onset earlier this week but worse in the last 24 hours. She reports productive cough of yellow sputum, shortness of breath, wheezing, chest tightness. No fever, chills, nausea, vomiting, diarrhea. She was recently exposed to pneumonia. She has an underlying history of COPD. She does not have an inhaler. She occasionally hasa few puffs on a cigarette but states she has considerably cut down from her previous habit of 1 pack per day. She has been taking ibuprofen for symptoms. Related Data Home Medications ?Medication ?Instructions ?Recorded ?Confirmed ?Last Taken ?Type gabapentin 800 mg tablet 800 mg PO QID 01/22/24 01/22/24 Unknown History Allergies Allergy/AdvReac Type Severity Reaction Status Date / Time tramadol Allergy Seizure Verified 09/18/24 17:46 Review of Systems Review of Systems: CONSTITUTIONAL: Denies fever, chills, or sweats. EYES: Denies visual changes, redness, or discharge. ENT: Denies rhinorrhea, congestion, sore throat, or otalgia. CARDIOVASCULAR: Denies chest pain, palpitations, or edema. RESPIRATORY: Reports productive cough, shortness of breath, wheezing, chest tightness GASTROINTESTINAL: Denies abdominal pain, nausea, vomiting, or diarrhea. GENITOURINARY: Denies dysuria or hematuria. SKIN: Denies rash or itching. MUSCULOSKELETAL: Denies back pain, joint pain, or myalgia. NEUROLOGIC: Denies headache, numbness, dizziness, or weakness. PSYCHIATRIC: Denies anxiety or depression. [facility] Past Medical History Medical History Emphysema lung Neuropathy Small cell lung cancer Surgical History Surgical History H/O knee surgery H/O Spinal surgery S/P partial lobectomy of lung H/O: hysterectomy Family History Family History Other Diabetes mellitus Family history of liver disease Social History Social History Years smoked: 43 Smoking status: Current every day smoker Additional smoking assessment comments: recently quit smoking Alcohol intake: never Substance use type: does not use Gender identity (if verbalized by the patient): Female Exam Narrative: GENERAL: Well-appearing, well-nourished, and in no acute distress. HEAD: Normocephalic, atraumatic. EYES: PERRLA and EOMI. ENT: Nares clear, no rhinorrhea or epistaxis. Mucous membranes moist. Oropharynx without tonsillar hypertrophy exudate or other lesions. Bilateral TMs pearly edouard nonbulging NECK: Supple. No adenopathy or masses. No carotid bruits or JVD CHEST: Poor inspiratory effort. Mild wheezing noted bilateral upper lobes posteriorly. Diminished breath sounds throughout HEART: Regular rate and rhythm. No murmur heard. Normal peripheral pulses. ABDOMEN: Soft, nontender, nondistended, normal active bowel sounds. EXTREMITIES: Normal range of motion. No edema. SKIN: Warm, dry, no rash. NEURO: No focal deficits. Alert and oriented x3. PSYCH: Normal mood and affect. Course Course Emergency Course: This is a 59-year-old female who presented for evaluation of respiratory symptoms. Offered to check her for COVID and flu. She declined. I recommended chest x-ray. She declined. She states she is in a cordero and needs to leave. We agreed to treat her empirically for community-acquired pneumonia given her history of COPD. Will discharge with Augmentin, azithromycin, prednisone, albuterol. Follow-up with primary provider. Go to the ER for worsening symptoms. Patient in agreement with plan of care. Level of Care: Express Care Visit Vital Signs Vital signs: Vital Signs Temperature 36.9 C 09/18/24 17:45 Pulse Rate 93 09/18/24 17:45 Respiratory Rate 24 H 09/18/24 17:45 Blood Pressure 148/78 H 09/18/24 17:45 Pulse Oximetry 94 09/18/24 17:45 Oxygen Delivery Room Air 09/18/24 17:45 Temperature 36.9 C 09/18/24 17:45 Pulse Rate 93 09/18/24 17:45 Respiratory Rate 24 H 09/18/24 17:45 Blood Pressure 148/78 H 09/18/24 17:45 Pulse Oximetry 94 09/18/24 17:45 Oxygen Delivery Room Air 09/18/24 17:45 Medical Decision Making Vital Signs Vital Signs: Vital Signs Temperature 36.9 C 09/18/24 17:45 Pulse Rate 93 09/18/24 17:45 Respiratory Rate 24 H 09/18/24 17:45 Blood Pressure 148/78 H 09/18/24 17:45 Pulse Oximetry 94 09/18/24 17:45 Oxygen Delivery Room Air 09/18/24 17:45 Temperature 36.9 C 09/18/24 17:45 Pulse Rate 93 09/18/24 17:45 Respiratory Rate 24 H 09/18/24 17:45 Blood Pressure 148/78 H 09/18/24 17:45 Pulse Oximetry 94 09/18/24 17:45 Oxygen Delivery Room Air 09/18/24 17:45 Discharge Plan Discharge Clinical Impression: COPD exacerbation, At risk for pneumonia Patient Disposition: Home Condition: Stable Instructions: Antibiotic Form, COPD (Chronic Obstructive Pulmonary Disease) (ED), Community Acquired Pneumonia (DC) Patient Language: Palestinian Prescriptions: New prednisone 50 mg tablet 50 mg PO DAILY Qty: 5 0RF Proair Digihaler 90 mcg/actuation aero powdr breath act w/sensor 2 inh inhalation Q6H Qty: 1 0RF amoxicillin-pot clavulanate 875-125 mg tablet 1 tablet PO Q12H Qty: 20 0RF azithromycin [Zithromax Z-Bryant] 250 mg tablet See Rx Instructions .ROUTE .COMPLEX Qty: 6 0RF Rx Instructions: For 250 mg dose pack: take 500 mg today (day 1), then 250 mg for 4 days (days 2-5) No Action gabapentin 800 mg tablet 800 mg PO QID Follow-up/Referrals: Hickey,Courtney Álvarez APN [Primary Care Provider] - Time of Disposition: 18:28
== END 2024-09-18 18:30 | disposition home or self-care (01) ==
PROVIDERS: Emergency Provider Nurse Practitioner; PCP Nurse Practitioner Family
DX: J44.9 Chronic obstructive pulmonary disease, unspecified (principal); F17.210 Nicotine dependence, cigarettes, uncomplicated; Z85.118 Personal history of other malignant neoplasm of bronchus and lung
CPT/HCPCS: 99213; G0463